=== PATIENT | male | born 1970 | race African-American/Black ===

== ENCOUNTER 2016-10-15 10:31 | Inpatient (IN) | payer OTHER ==
[2016-10-15 12:01] VITALS: BMI 28.0
[2016-10-15] MEDS ORDERED: P-EPHED 60MG/TRIPROLIDI 2.5MG TABLET PO PRN (13:42)
[2016-10-15] MEDS ORDERED: ACETAMINOPHEN 325 MG TABLET (FP) PO PRN (13:42)
[2016-10-15] MEDS ORDERED: guaiFENesin/D-METHORPHAN HB 10 ML UNIT-DOSE CUPS PO PRN (13:42)
[2016-10-15] MEDS ORDERED: diphenhydrAMINE HCL 50 MG CAPSULE PO PRN (13:42)
[2016-10-15] MEDS ORDERED: NICOTINE POLACRILEX 4 MG GUM BUC PRN (13:42)
[2016-10-15] MEDS ORDERED: hydrOXYzine PAMOATE 25 MG CAPSULE (FP) PO PRN (13:42)
[2016-10-15] MEDS ORDERED: MAGNESIUM CITRATE 300 ML BOTTLE PO PRN (13:42)
[2016-10-15] MEDS ORDERED: MENTHOL/PHENOL 1 EACH UD MM PRN (13:42)
[2016-10-15] MEDS ORDERED: MAG HYDROX/AL HYDROX/SIMETH 30 ML UNIT-DOSE CUP PO PRN (13:42)
[2016-10-15] MEDS ORDERED: MAGNESIUM HYDROX 2400MG/30ML ORAL SUSPENSION 30 ML CUP PO PRN (13:42)
[2016-10-15] MEDS ORDERED: LOPERAMIDE HCL 2 MG CAPSULE PO PRN (13:42)
--- NOTE | 2016-10-15 13:49 | HP ---
CIWA Score - CIWA Score Nausea/Vomitin Muscle Tremors: 2 Anxiety: 3 Agitation: 3 Paroxysmal Sweats: 3 Orientation: 0-Oriented Tacttile Disturbances: 2-Mild Itch/Numbness/Burn Auditory Disturbances: 0-None Visual Disturbances: 0-None Headache: 0-None Present CIWA-Ar Total Score: 15 Admission ROS BHS - HPI Chief Complaint: I need help to stop using alcohol , cocaine and Allergies/Adverse Reactions: Allergies Allergy/AdvReac Type Severity Reaction Status Date / Time beet Allergy Severe Hives Verified 10/15/16 13:44 No Known Drug Allergies Allergy Verified 10/15/16 13:44 History of Present Illness: 45 y/o m pt with a h/o chronic alcoholism, crack abuse seeking detox., Exam Limitations: No Limitations - Ebola screening Have you traveled outside of the country in the last 21 days: No Have you had contact with anyone from an Ebola affected area: No Have you been sick,other than usual withdrawal symptoms: No Do you have a fever: No - Review of Systems Constitutional: Changes in sleep, Unintentional Wgt. Loss (8lbs x 2 wks) EENT: reports: Blurred Vision, Other (wears galsses has them) Respiratory: reports: No Symptoms reported Cardiac: reports: No Symptoms Reported GI: reports: No Symptoms Reported : reports: No Symptoms Reported Musculoskeletal: reports: Joint Pain (rtr knee -rods , pins and a plate), Muscle Pain Integumentary: reports: Rash (on back -) Endocrine: reports: No Symptoms Reported Hematology: reports: No Symptoms Reported Psychiatric: reports: Agitated, Anxious, Depressed Other Systems: Reviewed and Negative Patient History - Patient Medical History Hx Anemia: No Hx Asthma: No Hx Chronic Obstructive Pulmonary Disease (COPD): No Hx Cancer: No Hx Cardiac Disorders: No Hx Congestive Heart Failure: No Hx Hypertension: Yes (Stopped taking medication) Hx Hypercholesterolemia: No Hx Pacemaker: No HX Cerebrovascular Accident: No (deneis, but gives hx of cluster headches. Rx. ibuprofen ) Hx Seizures: No Hx Dementia: No Hx Diabetes: No Hx Gastrointestinal Disorders: Yes (GERD) Hx Liver Disease: No Hx Genitourinary Disorders: No Hx Sexually Transmitted Disorders: No Hx Renal Disease (ESRD): No Hx Thyroid Disease: No Hx Human Immunodeficiency Virus (HIV): No (NEGATIVE) Hx Hepatitis C: No Hx Depression: Yes Hx Suicide Attempt: No Hx Bipolar Disorder: Yes (states that he was diag. with this condition also ) Hx Schizophrenia: No - Patient Surgical History Past Surgical History: Yes Hx Orthopedic Surgery: Yes (right knee with hardware) - PPD History Date: 08/23/15 - Reproductive History Patient is a Female of Child Bearing Age (11 -55 yrs old): No - Smoking Cessation Smoking history: Current every day smoker Have you smoked in the past 12 months: Yes Aproximately how many cigarettes per day: 10 Cigars Per Day: 0 Hx Chewing Tobacco Use: No Initiated information on smoking cessation: Yes 'Breaking Loose' booklet given: 10/15/16 - Substance & Tx. History Hx Alcohol Use: Yes Hx Substance Use: No Substance Use Type: Alcohol, Cocaine - Substances Abused Alcohol Route: Oral Frequency: Daily Amount used: beer(3-40 0z cans/[place] ice tea-1pint Age of first use: 11 Date of Last Use: 10/15/16 Crack Route: Smoking Frequency: Daily Amount used: $200 Age of first use: 21 Date of Last Use: 10/14/16 Family Disease History - Family Disease History Family History: Denies Admission Physical Exam BHS - Vital Signs Vital Signs: Vital Signs - 24 hr 10/15/16 11:58 Temperature 95.6 F L Pulse Rate 90 Respiratory 20 Rate Blood Pressure 126/69 45 y/o m pt aox3 , ambulating , cooperative with exam . 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 NML intact, Fully Oriented, Alert, Motor Strength 5/5, Normal Response Integumentary: Yes: Diaphoresis, Rash Lymphatic: Yes: Within Normal Limits - Addiitonal Findings: tinea vesicolor on back - Diagnostic (1) Cocaine dependence, continuous Current Visit: Yes Status: Chronic (2) Nicotine dependence Current Visit: Yes Status: Chronic Qualifiers: Nicotine product type: cigarettes Substance use status: uncomplicated Qualified Code(s): F17.210 - Nicotine dependence, cigarettes, uncomplicated (3) Bipolar affective disorder, mixed, moderate Current Visit: Yes Status: Chronic (4) Tinea versicolor Current Visit: Yes Status: Chronic (5) Alcohol dependence with uncomplicated withdrawal Current Visit: Yes Status: Chronic Cleared for Admission [facility] - Detox or Rehab [facility] Level of Care: Medically Managed Detox Regimen/Protocol: Librium [facility] Breath Alcohol Content Breath Alcohol Content: 0.024 Urine Drug Screen - Results Drug Screen Negative: No Urine Drug Screen Results: TAYLOR-Cocaine
[2016-10-15] MEDS: chlordiazePOXIDE HCL 25 MG CAPSULE PO PRN ×2 (15:10→20:15)
[2016-10-15] MEDS: chlordiazePOXIDE HCL 25 MG CAPSULE PO SCH ×2 (17:04→22:35)
--- NOTE | 2016-10-15 17:17 | CONSULT ---
[facility] Psychiatric Consult - Data Date of interview: 10/15/16 Admission source: [facility] Identifying data: Readmission to [facility] for this 45 y/o AA male seeking detox treatment on for alcohol and cocaine (crack) dependence.Patient is single,a father of one,domiciled,unemployed and supported on food stamps. Substance Abuse History: - Smoking Cessation. Smoking history: Current every day smoker. Have you smoked in the past 12 months: Yes. Aproximately how many cigarettes per day: 10. Cigars Per Day: 0. Hx Chewing Tobacco Use: No. Initiated information on smoking cessation: Yes. 'Breaking Loose' booklet given : 10/15/16. - Substance & Tx. History. Hx Alcohol Use: Yes. Hx Substance Use : No. Substance Use Type: Alcohol, Cocaine. - Substances Abused. Alcohol. Route: Oral. Frequency: Daily. Amount used: beer(3-40 0z cans/[place] ice tea-1pint. Age of first use: 11. Date of Last Use: 10/15/16. Crack. Route: Smoking. Frequency: Daily. Amount used: $200. Age of first use: 21. Date of Last Use: 10/14/16. Confirmed by patient. Medical History: GERD,hypertension,herniated disks,lower back pain,tinea versicolor and right knee with hardware. Psychiatric History: Patient reports a history of " a few " psychiatric hospitalizations.First seen by a psychiatrist,early on,at age [age] to address behavioral disturbances and hyperactivity.Mr Sharma is known to [facility] and [facility].Diagnosed with Bipolar Disorder.Maintained on a regimen of depakote 500 mg po bid + seroquel 50 mg po bid + risperdal 2 mg/day.He is assigned to [facility] clinic for follow up.Patient admits to a personal history of sub-optimal adherence for psychiatric aftercare.No reported history of suicide attempts. Physical/Sexual Abuse/Trauma History: Patient denies. Additional Comment: Urine Drug Screen Results: TAYLOR-Cocaine.Noted. Mental Status Exam - Mental Status Exam Alert and Oriented to: Time, Place, Person Cognitive Function: Good Patient Appearance: Well Groomed Mood: Hopeful, Euthymic Affect: Appropriate, Normal Range Patient Behavior: Appropriate, Cooperative Speech Pattern: Clear, Appropriate Voice Loudness: Normal Thought Process: Goal Oriented Thought Disorder: Not Present Hallucinations: Denies Suicidal Ideation: Denies Homicidal Ideation: Denies Insight/Judgement: Poor Sleep: Poorly, Difficulty falling asleep Appetite: Good Muscle strength/Tone: Normal Gait/Station: Normal Psychiatric Findings - Problem List ([place] 1, 2,3) (1) Alcohol dependence with uncomplicated withdrawal Current Visit: Yes Status: Acute (2) Cocaine dependence, uncomplicated Current Visit: Yes Status: Acute (3) Nicotine dependence Current Visit: Yes Status: Acute Qualifiers: Nicotine product type: cigarettes Substance use status: uncomplicated Qualified Code(s): F17.210 - Nicotine dependence, cigarettes, uncomplicated (4) Bipolar affective disorder, mixed, moderate Current Visit: Yes Status: Chronic (5) Substance induced mood disorder Current Visit: Yes Status: Acute (6) Tinea versicolor Current Visit: Yes Status: Chronic (7) Hypertension Current Visit: Yes Status: Chronic Qualifiers: Hypertension type: other secondary hypertension Qualified Code(s): I15.8 - Other secondary hypertension (8) GERD (gastroesophageal reflux disease) Current Visit: Yes Status: Suspected Qualifiers: Esophagitis presence: without esophagitis Qualified Code(s): K21.9 - Gastro-esophageal reflux disease without esophagitis - Initial Treatment Plan Initial Treatment Plan: Psychoeducation.Detoxification.Medications : depakote 500 mg po bid + seroquel 50 mg po bid + risperdal 1 mg po daily.Side effects/ benefits discussed with this patient.Made aware of the risks of abnormal involuntary movements,sexual dysfunction,galactorrhea,gynecomastia,neuroleptic malignant syndrome,dyskinesias,dystonias (risperdal),oversedation/falls, metabolic syndrome,weight gain,liver dysfunction (seroquel),blood dyscrasias, elevated liver enzymes/hepatic dysfunction (depakote).Patient reports good tolerability to these drugs/no prior history of adverse events.He expresses his agreement (verbally) to this careplan.Valproic acid level is requested.Will follow.Observation.
[2016-10-15 18:05] LABS: URINE APPEARANCE CLEAR; URINE BILIRUBIN NEGATIVE (NEGATIVE); URINE BLOOD NEGATIVE (NEGATIVE); URINE COLOR LTYELLOW; URINE GLUCOSE (UA) NEGATIVE (NEGATIVE); URINE KETONE NEGATIVE (NEGATIVE); URINE LEUK ESTERASE NEGATIVE (NEGATIVE); URINE NITRITE NEGATIVE (NEGATIVE); URINE PROTEIN NEGATIVE (NEGATIVE); URINE UROBILINOGEN NEGATIVE E.U./dl (0.2-1.0)
[2016-10-15 21:08] LABS: MCH 29.8 pg (25.7-33.7); MCHC 33.1 g/dl (32.0-35.9); MEAN CELL VOLUME 90.1 fl (80-96); MEAN PLT VOLUME 9.3 fl (7.5-11.1); PLATELET COUNT 221 K/MM3 (134-434); WHITE BLOOD COUNT 6.8 K/mm3 (4.0-10.0)
[2016-10-15 21:21] LABS: ALBUMIN 3.8 g/dl (3.4-5.0); CALCIUM 9.3 mg/dL (8.5-10.1)
[2016-10-15 21:26] LABS: BILIRUBIN,TOTAL 0.3 mg/dL (0.2-1.0); CREATININE 1.3 mg/dL (0.7-1.3); TOT PROT 6.8 g/dl (6.4-8.2)
[2016-10-15] MEDS: NAPROXEN 500 MG TABLET (FP) PO SCH (22:34)
[2016-10-15] MEDS: QUEtiapine FUMARATE 50 MG TABLET PO SCH (22:34)
[2016-10-15] MEDS: DIVALPROEX SODIUM 500 MG TABLET E.C. PO SCH (22:34)
[2016-10-15] MEDS: THIAMINE HCL 100 MG TABLET (FP) PO SCH (22:35)
[2016-10-15] MEDS: KETOCONOZOLE 2% TOPICAL CREAM 15 GM TUBE TP SCH (22:35)
[2016-10-15] MEDS: risperiDONE 1 MG TABLET (FP) PO SCH (22:37)
[2016-10-16] MEDS: chlordiazePOXIDE HCL 25 MG CAPSULE PO SCH ×4 (05:52→22:38)
--- NOTE | 2016-10-16 09:11 | PN ---
S CIWA - CIWA Score Nausea/Vomitin Muscle Tremors: 3 Anxiety: 3 Agitation: 3 Paroxysmal Sweats: 1-Minimal Palms Moist Orientation: 0-Oriented Tacttile Disturbances: 1-Very Mild Itch/Numbness Auditory Disturbances: 1-Very Mild Visual Disturbances: 1-Very Mild Sensitivity Headache: 2-Mild CIWA-Ar Total Score: 18 S Progress Note (SOAP) Subjective: ALERT,IRRITABLE,ANXIOUS,INTERRUPTED SLEEP,TREMOR Objective: 10/16/16 09:09 Vital Signs Temperature 96.4 F L 10/16/16 06:40 Pulse Rate 79 10/16/16 06:40 Respiratory Rate 18 10/16/16 06:40 Blood Pressure 120/75 10/16/16 06:40 O2 Sat by Pulse Oximetry (%) EKG NSR,NORMAL ECG Laboratory Last Values WBC 6.8 K/mm3 (4.0-10.0) D 10/15/16 13:00 RBC 4.77 M/mm3 (4.00-5.60) 10/15/16 13:00 Hgb 14.2 GM/dL (11.7-16.9) 10/15/16 13:00 Hct 43.0 % (35.4-49) 10/15/16 13:00 MCV 90.1 fl (80-96) 10/15/16 13:00 MCHC 33.1 g/dl (32.0-35.9) 10/15/16 13:00 RDW 14.0 % (11.9-15.9) 10/15/16 13:00 Plt Count 221 K/MM3 (134-434) 10/15/16 13:00 MPV 9.3 fl (7.5-11.1) 10/15/16 13:00 Sodium 143 mmol/L (136-145) 10/15/16 13:00 Potassium 3.9 mmol/L (3.5-5.1) 10/15/16 13:00 Chloride 106 mmol/L (98-107) 10/15/16 13:00 Carbon Dioxide 31 mmol/L (21-32) 10/15/16 13:00 Anion Gap 6 (8-16) L 10/15/16 13:00 BUN 14 mg/dL (7-18) 10/15/16 13:00 Creatinine 1.3 mg/dL (0.7-1.3) 10/15/16 13:00 Creat Clearance w eGFR 59.17 (>60) 10/15/16 13:00 Random Glucose 63 mg/dL (74-106) L D 10/15/16 13:00 Calcium 9.3 mg/dL (8.5-10.1) 10/15/16 13:00 Total Bilirubin 0.3 mg/dL (0.2-1.0) D 10/15/16 13:00 AST 13 U/L (15-37) L D 10/15/16 13:00 ALT 25 U/L (12-78) 10/15/16 13:00 Alkaline Phosphatase 67 U/L (45-117) 10/15/16 13:00 Total Protein 6.8 g/dl (6.4-8.2) 10/15/16 13:00 Albumin 3.8 g/dl (3.4-5.0) 10/15/16 13:00 Urine Color Ltyellow 10/15/16 15:00 Urine Appearance Clear 10/15/16 15:00 Urine pH 6.0 (5.0-8.0) 10/15/16 15:00 Ur Specific [place] 1.017 (1.001-1.035) 10/15/16 15:00 Urine Protein Negative (NEGATIVE) 10/15/16 15:00 Urine Glucose (UA) Negative (NEGATIVE) 10/15/16 15:00 Urine Ketones Negative (NEGATIVE) 10/15/16 15:00 Urine Blood Negative (NEGATIVE) 10/15/16 15:00 Urine Nitrite Negative (NEGATIVE) 10/15/16 15:00 Urine Bilirubin Negative (NEGATIVE) 10/15/16 15:00 Urine Urobilinogen Negative E.U./dl (0.2-1.0) 10/15/16 15:00 Ur Leukocyte Esterase Negative (NEGATIVE) 10/15/16 15:00 LABS PENDING Assessment: 10/16/16 09:10 WITHDRAWAL SYMPTOM Plan: CONTINUE DETOX
[2016-10-16] MEDS: KETOCONOZOLE 2% TOPICAL CREAM 15 GM TUBE TP SCH ×2 (10:35→22:38)
[2016-10-16] MEDS: PRENATAL VITAMINS W/ FOLIC ACID TABLET (FP) PO SCH (10:36)
[2016-10-16] MEDS: QUEtiapine FUMARATE 50 MG TABLET PO SCH ×2 (10:38→22:37)
[2016-10-16] MEDS: NAPROXEN 500 MG TABLET (FP) PO SCH ×2 (10:38→22:38)
[2016-10-16] MEDS: NICOTINE 21 MG/24 HOURS TOPICAL PATCH TD SCH (10:38)
[2016-10-16] MEDS: DIVALPROEX SODIUM 500 MG TABLET E.C. PO SCH ×2 (10:38→22:37)
[2016-10-16] MEDS ORDERED: INFLUENZA VACCINE 45 MCG/0.5 ML (MDV 16-17) IM ONE (12:00)
[2016-10-16] MEDS: risperiDONE 1 MG TABLET (FP) PO SCH (22:37)
[2016-10-16] MEDS: THIAMINE HCL 100 MG TABLET (FP) PO SCH (22:37)
[2016-10-17] MEDS: chlordiazePOXIDE HCL 25 MG CAPSULE PO SCH ×2 (05:49→10:57)
--- NOTE | 2016-10-17 09:29 | PN ---
S CIWA - CIWA Score Nausea/Vomitin Muscle Tremors: 3 Anxiety: 3 Agitation: 2 Paroxysmal Sweats: 1-Minimal Palms Moist Orientation: 0-Oriented Tacttile Disturbances: 1-Very Mild Itch/Numbness Auditory Disturbances: 1-Very Mild Visual Disturbances: 1-Very Mild Sensitivity Headache: 2-Mild CIWA-Ar Total Score: 17 BHS Progress Note (SOAP) Subjective: ALERT,IRRITABLE,ANXIOUS,INTERRUPTED SLEEP,TREMOR Objective: 10/17/16 09:28 Vital Signs Temperature 95.7 F L 10/17/16 06:47 Pulse Rate 87 10/17/16 06:47 Respiratory Rate 16 10/17/16 06:47 Blood Pressure 104/63 10/17/16 06:47 O2 Sat by Pulse Oximetry (%) Laboratory Last Values WBC 6.8 K/mm3 (4.0-10.0) D 10/15/16 13:00 RBC 4.77 M/mm3 (4.00-5.60) 10/15/16 13:00 Hgb 14.2 GM/dL (11.7-16.9) 10/15/16 13:00 Hct 43.0 % (35.4-49) 10/15/16 13:00 MCV 90.1 fl (80-96) 10/15/16 13:00 MCHC 33.1 g/dl (32.0-35.9) 10/15/16 13:00 RDW 14.0 % (11.9-15.9) 10/15/16 13:00 Plt Count 221 K/MM3 (134-434) 10/15/16 13:00 MPV 9.3 fl (7.5-11.1) 10/15/16 13:00 Sodium 143 mmol/L (136-145) 10/15/16 13:00 Potassium 3.9 mmol/L (3.5-5.1) 10/15/16 13:00 Chloride 106 mmol/L (98-107) 10/15/16 13:00 Carbon Dioxide 31 mmol/L (21-32) 10/15/16 13:00 Anion Gap 6 (8-16) L 10/15/16 13:00 BUN 14 mg/dL (7-18) 10/15/16 13:00 Creatinine 1.3 mg/dL (0.7-1.3) 10/15/16 13:00 Creat Clearance w eGFR 59.17 (>60) 10/15/16 13:00 Random Glucose 63 mg/dL (74-106) L D 10/15/16 13:00 Calcium 9.3 mg/dL (8.5-10.1) 10/15/16 13:00 Total Bilirubin 0.3 mg/dL (0.2-1.0) D 10/15/16 13:00 AST 13 U/L (15-37) L D 10/15/16 13:00 ALT 25 U/L (12-78) 10/15/16 13:00 Alkaline Phosphatase 67 U/L (45-117) 10/15/16 13:00 Total Protein 6.8 g/dl (6.4-8.2) 10/15/16 13:00 Albumin 3.8 g/dl (3.4-5.0) 10/15/16 13:00 Urine Color Ltyellow 10/15/16 15:00 Urine Appearance Clear 10/15/16 15:00 Urine pH 6.0 (5.0-8.0) 10/15/16 15:00 Ur Specific [place] 1.017 (1.001-1.035) 10/15/16 15:00 Urine Protein Negative (NEGATIVE) 10/15/16 15:00 Urine Glucose (UA) Negative (NEGATIVE) 10/15/16 15:00 Urine Ketones Negative (NEGATIVE) 10/15/16 15:00 Urine Blood Negative (NEGATIVE) 10/15/16 15:00 Urine Nitrite Negative (NEGATIVE) 10/15/16 15:00 Urine Bilirubin Negative (NEGATIVE) 10/15/16 15:00 Urine Urobilinogen Negative E.U./dl (0.2-1.0) 10/15/16 15:00 Ur Leukocyte Esterase Negative (NEGATIVE) 10/15/16 15:00 Valproic Acid 7.878 ug/ml (50-100) L 10/16/16 06:00 RPR Titer Nonreactive (NONREACTIVE) 10/15/16 13:00 Assessment: 10/17/16 09:29 WITHDRAWAL SYMPTOM Plan: CONTINUE DETOX
[2016-10-17] MEDS: DIVALPROEX SODIUM 500 MG TABLET E.C. PO SCH ×2 (10:56→22:43)
[2016-10-17] MEDS: QUEtiapine FUMARATE 50 MG TABLET PO SCH ×2 (10:57→22:44)
[2016-10-17] MEDS: NICOTINE 21 MG/24 HOURS TOPICAL PATCH TD SCH (10:57)
[2016-10-17] MEDS: PRENATAL VITAMINS W/ FOLIC ACID TABLET (FP) PO SCH (10:57)
[2016-10-17] MEDS: NAPROXEN 500 MG TABLET (FP) PO SCH ×2 (10:57→22:43)
[2016-10-17] MEDS: KETOCONOZOLE 2% TOPICAL CREAM 15 GM TUBE TP SCH ×2 (10:57→22:44)
--- NOTE | 2016-10-17 13:24 | EKG ---
Test Reason : Blood Pressure : / mmHG Vent. Rate : 072 BPM Atrial Rate : 072 BPM P-R Int : 136 ms QRS Dur : 078 ms QT Int : 380 ms P-R-T Axes : 071 076 041 degrees QTc Int : 416 ms NORMAL SINUS RHYTHM NORMAL ECG NO PREVIOUS ECGS AVAILABLE Confirmed by JOSÉ CRUZ, DANICA ([id number]) on 10/17/2016 1:24:15 PM Referred By: Joaquin Ortiz Confirmed By:DANICA KUMAR MD
[2016-10-17] MEDS: chlordiazePOXIDE 5 MG CAPSULE PO SCH ×2 (17:52→22:43)
--- NOTE | 2016-10-17 20:01 | PN ---
[facility] Progress Note Note: Psychiatry Attending's note : Approached by patient. Complaint : daytime sedation. Requests lower dose of seroquel. Plan : Seroquel 50 mg/day is discontinued. Seroquel 50 mg po at bedtime. Patient agrees with this careplan.
[2016-10-17] MEDS: THIAMINE HCL 100 MG TABLET (FP) PO SCH (22:43)
[2016-10-18] MEDS: chlordiazePOXIDE 5 MG CAPSULE PO SCH ×2 (05:16→10:47)
--- NOTE | 2016-10-18 10:41 | PN ---
S Progress Note (SOAP) Subjective: ALERT,IRRITABLE,INTERRUPTED SLEEP Objective: 10/18/16 10:40 Vital Signs Temperature 96 F L 10/18/16 09:54 Pulse Rate 83 10/18/16 09:54 Respiratory Rate 20 10/18/16 09:54 Blood Pressure 104/71 10/18/16 09:54 O2 Sat by Pulse Oximetry (%) Assessment: 10/18/16 10:40 WITHDRAWAL SYMPTOM Plan: CONTINUE DETOX,DISCHARGE IN AM
[2016-10-18] MEDS: PRENATAL VITAMINS W/ FOLIC ACID TABLET (FP) PO SCH (10:47)
[2016-10-18] MEDS: DIVALPROEX SODIUM 500 MG TABLET E.C. PO SCH ×2 (10:47→22:26)
[2016-10-18] MEDS: NICOTINE 21 MG/24 HOURS TOPICAL PATCH TD SCH (10:47)
[2016-10-18] MEDS: NAPROXEN 500 MG TABLET (FP) PO SCH ×2 (10:47→22:26)
[2016-10-18] MEDS: KETOCONOZOLE 2% TOPICAL CREAM 15 GM TUBE TP SCH ×2 (10:49→22:27)
[2016-10-18] MEDS: chlordiazePOXIDE HCL 10 MG CAPSULE PO SCH ×2 (17:44→22:26)
[2016-10-18] MEDS: THIAMINE HCL 100 MG TABLET (FP) PO SCH (22:26)
[2016-10-18] MEDS: QUEtiapine FUMARATE 50 MG TABLET PO SCH (22:28)
[2016-10-19] MEDS: chlordiazePOXIDE HCL 10 MG CAPSULE PO SCH ×2 (06:09→10:53)
[2016-10-19] MEDS: DIVALPROEX SODIUM 500 MG TABLET E.C. PO SCH (09:49)
[2016-10-19] MEDS: PRENATAL VITAMINS W/ FOLIC ACID TABLET (FP) PO SCH (09:49)
[2016-10-19] MEDS: NAPROXEN 500 MG TABLET (FP) PO SCH (09:49)
[2016-10-19] MEDS: KETOCONOZOLE 2% TOPICAL CREAM 15 GM TUBE TP SCH (09:50)
[2016-10-19] MEDS: NICOTINE 21 MG/24 HOURS TOPICAL PATCH TD SCH (09:50)
[2016-10-19 10:33] VITALS: BP 97/66; PULSE 89; TEMP 96.4
--- NOTE | 2016-10-19 15:35 | DS ---
[facility] Detox Discharge Summary Admission Date: 10/15/16 Discharge Date: 10/19/16 - History Present History: Alcohol Dependence, Cocaine Dependence Additional Comments: ADVISED PATIENT TO FOLLOW-UP WITH [facility] / REHAB MEDICAL PROVIDER AFTER DISCHARGE FROM DETOX FOR GENERAL MEDICAL ASSESSMENT. Pertinent Past History: HTN, GERD, Bi-Polar disorder. - Physical Exam Results Vital Signs: Vital Signs Temperature 96.4 F L 10/19/16 10:32 Pulse Rate 89 10/19/16 10:32 Respiratory Rate 18 10/19/16 10:32 Blood Pressure 97/66 10/19/16 10:32 O2 Sat by Pulse Oximetry (%) Pertinent Admission Physical Exam Findings: WITHDRAWAL SYMPTOMS. Laboratory Last Values WBC 6.8 K/mm3 (4.0-10.0) D 10/15/16 13:00 RBC 4.77 M/mm3 (4.00-5.60) 10/15/16 13:00 Hgb 14.2 GM/dL (11.7-16.9) 10/15/16 13:00 Hct 43.0 % (35.4-49) 10/15/16 13:00 MCV 90.1 fl (80-96) 10/15/16 13:00 MCHC 33.1 g/dl (32.0-35.9) 10/15/16 13:00 RDW 14.0 % (11.9-15.9) 10/15/16 13:00 Plt Count 221 K/MM3 (134-434) 10/15/16 13:00 MPV 9.3 fl (7.5-11.1) 10/15/16 13:00 Sodium 143 mmol/L (136-145) 10/15/16 13:00 Potassium 3.9 mmol/L (3.5-5.1) 10/15/16 13:00 Chloride 106 mmol/L (98-107) 10/15/16 13:00 Carbon Dioxide 31 mmol/L (21-32) 10/15/16 13:00 Anion Gap 6 (8-16) L 10/15/16 13:00 BUN 14 mg/dL (7-18) 10/15/16 13:00 Creatinine 1.3 mg/dL (0.7-1.3) 10/15/16 13:00 Creat Clearance w eGFR 59.17 (>60) 10/15/16 13:00 Random Glucose 63 mg/dL (74-106) L D 10/15/16 13:00 Calcium 9.3 mg/dL (8.5-10.1) 10/15/16 13:00 Total Bilirubin 0.3 mg/dL (0.2-1.0) D 10/15/16 13:00 AST 13 U/L (15-37) L D 10/15/16 13:00 ALT 25 U/L (12-78) 10/15/16 13:00 Alkaline Phosphatase 67 U/L (45-117) 10/15/16 13:00 Total Protein 6.8 g/dl (6.4-8.2) 10/15/16 13:00 Albumin 3.8 g/dl (3.4-5.0) 10/15/16 13:00 Urine Color Ltyellow 10/15/16 15:00 Urine Appearance Clear 10/15/16 15:00 Urine pH 6.0 (5.0-8.0) 10/15/16 15:00 Ur Specific [place] 1.017 (1.001-1.035) 10/15/16 15:00 Urine Protein Negative (NEGATIVE) 10/15/16 15:00 Urine Glucose (UA) Negative (NEGATIVE) 10/15/16 15:00 Urine Ketones Negative (NEGATIVE) 10/15/16 15:00 Urine Blood Negative (NEGATIVE) 10/15/16 15:00 Urine Nitrite Negative (NEGATIVE) 10/15/16 15:00 Urine Bilirubin Negative (NEGATIVE) 10/15/16 15:00 Urine Urobilinogen Negative E.U./dl (0.2-1.0) 10/15/16 15:00 Ur Leukocyte Esterase Negative (NEGATIVE) 10/15/16 15:00 Valproic Acid 7.878 ug/ml (50-100) L 10/16/16 06:00 RPR Titer Nonreactive (NONREACTIVE) 10/15/16 13:00 Hepatitis C Antibody 0.4 s/co ratio (0.0-0.9) 10/15/16 13:45 LABS NOTED. - Treatment Hospital Course: Detox Protocol Followed, Detoxed Safely, Responded well, Discharged Condition Good, Rehab Referral Accepted Patient has Accepted a Rehab Referral to: YES - [facility]. - Medication Discharge Medications: Ambulatory Orders Esomeprazole Magnesium 40 mg PO DAILY 08/16/15 Quetiapine Fumarate [Seroquel -] 50 mg PO HS #30 08/17/15 Divalproex [Depakote -] 500 mg PO BID #60 tablet.ec 09/08/15 Divalproex [Depakote -] 500 mg PO BID #30 tablet.ec 10/15/16 Naproxen [Naprosyn -] 500 mg PO DAILY 10/15/16 Quetiapine Fumarate [Seroquel] 100 mg PO HS #30 tablet 10/15/16 - Diagnosis (1) Alcohol dependence with uncomplicated withdrawal Status: Acute (2) Alcohol dependence, continuous Status: Chronic (3) Cocaine dependence, uncomplicated Status: Acute (4) Nicotine dependence Status: Chronic Qualifiers: Nicotine product type: cigarettes Substance use status: uncomplicated Qualified Code(s): F17.210 - Nicotine dependence, cigarettes, uncomplicated (5) Substance induced mood disorder Status: Acute (6) Bipolar affective disorder, mixed, moderate Status: Chronic (7) Cocaine dependence, continuous Status: Chronic (8) Hypertension Status: Chronic Qualifiers: Hypertension type: other secondary hypertension Qualified Code(s): I15.8 - Other secondary hypertension (9) Tinea versicolor Status: Chronic (10) GERD (gastroesophageal reflux disease) Status: Suspected Qualifiers: Esophagitis presence: without esophagitis Qualified Code(s): K21.9 - Gastro-esophageal reflux disease without esophagitis - AMA Did Patient Leave Against Medical Advice: No
== END 2016-10-19 09:55 | disposition home or self-care (01) | DRG 774 ==
LOC: YASAS 10:31 → Y3N 14:40
PROVIDERS: ADMIT Internal Medicine Addiction Medicine; ATTEND Internal Medicine
PROC: HZ2ZZZZ Detoxification Services for Substance Abuse Treatment (ICD-10-PCS; principal; 2016-10-19)
DX: F10.230 Alcohol dependence with withdrawal, uncomplicated (principal); F14.20 Cocaine dependence, uncomplicated; F17.210 Nicotine dependence, cigarettes, uncomplicated; F19.24 Other psychoactive substance dependence with psychoactive substance-induced mood disorder; F31.62 Bipolar disorder, current episode mixed, moderate; I10 Essential (primary) hypertension; K21.9 Gastro-esophageal reflux disease without esophagitis; B36.0 Pityriasis versicolor
CPT/HCPCS: 36415; 80053; 80164; 81003; 85027; 86593; 93005; 93010

== ENCOUNTER 2017-10-31 10:41 | Inpatient (IN) | payer OTHER ==
[2017-10-31 11:29] VITALS: BMI 25.8
--- NOTE | 2017-10-31 13:24 | HP ---
CIWA Score - CIWA Score Nausea/Vomitin-No Nausea/No Vomiting Muscle Tremors: 4-Moderate,w/Arms Extend Anxiety: 4-Mod. Anxious/Guarded Agitation: 4-Moderately Restless Paroxysmal Sweats: 1-Minimal Palms Moist Orientation: 0-Oriented Tacttile Disturbances: 3-Moderate Itch/Numb/Burn Auditory Disturbances: 0-None Visual Disturbances: 0-None Headache: 0-None Present CIWA-Ar Total Score: 16 Admission ROS S - HPI Chief Complaint: WITHDRAWAL SX FROM ALCOHOL Allergies/Adverse Reactions: Allergies Allergy/AdvReac Type Severity Reaction Status Date / Time beet Allergy Severe Hives Verified 10/31/17 11:59 No Known Drug Allergies Allergy Verified 10/31/17 11:59 History of Present Illness: 47 Y/O AA/MALE WITH A HX OF ALCOHOL,COCAINE AND "JEANNE" DEPENDENCE SEEKING DETOX TX. REPORTS "EIGHT MONTHS CLEAN IN A RESIDENTIAL PROGRAM BUT RELAPSED". Exam Limitations: No Limitations - Ebola screening Have you traveled outside of the country in the last 21 days: No Have you had contact with anyone from an Ebola affected area: No Have you been sick,other than usual withdrawal symptoms: No - Review of Systems Constitutional: Chills, Loss of Appetite, Night Sweats, Changes in sleep ( "NIGHTMARES--ON SEROQUEL AND RESPERIDOL"), Unintentional Wgt. Loss EENT: reports: Blurred Vision (WEARS GLASSES), Tearing, Nose Congestion, Dental Problems (MISSING TEETH/CHIPPED/PAINFUL TOOTH) Respiratory: reports: No Symptoms reported Cardiac: reports: Chest Pain (HX HEART MURMUR. REPORTS FEELS CHEST PAIN WHEN HE COMES OFF DRUGS), Lightheadedness GI: reports: Constipated, Poor Appetite, Poor Fluid Intake, Indigestion (HX GERD WITH MEDS IN THE PAST -RESOLVED, NO CURRENT MEDS.) : reports: No Symptoms Reported Musculoskeletal: reports: Back Pain, Joint Pain, Muscle Pain Integumentary: reports: Rash (FACIAL BEARDED AREAS--STATES HIS DOCTOR PRESCRIBED HIM HYDROCORTISONE OINTMENT.) Neuro: reports: Headache (HX MIGRAINE HEADACHE--REPORTS VEIN RUPTURE IN HAED A CHILD), Tremors, Unsteady Gait, Dizziness Endocrine: reports: No Symptoms Reported Hematology: reports: Anemia (PAST HX) Psychiatric: reports: Orientated x3, Anxious Other Systems: Reviewed and Negative Patient History - Patient Medical History Hx Anemia: Yes (REPORTS HE TAKES IRON SUPPLEMENTS AND VIT B12 TABLETS) Hx Asthma: No Hx Chronic Obstructive Pulmonary Disease (COPD): No Hx Cancer: No Hx Cardiac Disorders: No Hx Congestive Heart Failure: No Hx Hypertension: No Hx Hypercholesterolemia: No Hx Pacemaker: No HX Cerebrovascular Accident: No (deneis, but gives hx of cluster headches. Rx. ibuprofen ) Hx Seizures: No Hx Dementia: No Hx Diabetes: No Hx Gastrointestinal Disorders: Yes (GERD IN THE PAST BUT NO CURRENT MED) Hx Liver Disease: No Hx Genitourinary Disorders: No Hx Sexually Transmitted Disorders: Yes (gonorrhea and syphilis) Hx Renal Disease (ESRD): No Hx Thyroid Disease: No Hx Human Immunodeficiency Virus (HIV): No (NEGATIVE HX) Hx Hepatitis C: No Hx Depression: Yes Hx Suicide Attempt: No (DENIES S/I) Hx Bipolar Disorder: Yes (states that he was diag. with this condition also ) Hx Schizophrenia: No - Patient Surgical History Past Surgical History: Yes Hx Orthopedic Surgery: Yes (fx, right knee in 2009) Anesthesia Reaction: No - PPD History Previous Implant?: Yes Documented Results: Negative w/proof Implanted On Prior [facility] Admission?: Yes Date: 10/17/16 Results: 0 mm PPD to be Administered?: Yes - Reproductive History Patient is a Female of Child Bearing Age (11 -55 yrs old): No (MALE) - Smoking Cessation Smoking history: Current every day smoker Have you smoked in the past 12 months: Yes Aproximately how many cigarettes per day: 20 Cigars Per Day: 0 Hx Chewing Tobacco Use: No Initiated information on smoking cessation: Yes 'Breaking Loose' booklet given: 10/31/17 - Substance & Tx. History Hx Alcohol Use: Yes (GIN/BEER) Hx Substance Use: Yes (CRACK/JEANNE) Substance Use Type: Alcohol, Cocaine Hx Substance Use Treatment: Yes (LAST TX AT [facility]) - Substances Abused Crack Route: Smoking Frequency: Daily Amount used: $300-400 Age of first use: 17 Date of Last Use: 10/29/17 Alcohol-gin/beer Route: Oral Frequency: Daily Amount used: 2-3 pts./2 (40 oz.) Age of first use: 11 Date of Last Use: 10/29/17 Jeanne Route: Oral Frequency: 1-2 times per week Amount used: $40 Age of first use: 43 Date of Last Use: 10/29/17 Family Disease History - Family Disease History Family History: Denies Admission Physical Exam [facility] - Vital Signs Vital Signs: Vital Signs - 24 hr 10/31/17 11:23 Temperature 97.2 F L Pulse Rate 89 Respiratory 18 Rate Blood Pressure 125/75 - Physical General Appearance: Yes: Moderate Distress, Anxious HEENTM: Yes: EOMI, Normocephalic, BRAD, Pharynx Normal Respiratory: Yes: Chest Non-Tender, Lungs Clear, Normal Breath Sounds, No Respiratory Distress Neck: Yes: Supple, Trachea in good position Breast: Yes: Breast Exam Deferred Cardiology: Yes: Regular Rhythm, Regular Rate, S1, S2 Abdominal: Yes: Normal Bowel Sounds, Non Tender, Flat Genitourinary: Yes: Other (N/C) Back: Yes: Within Normal Limits Musculoskeletal: Yes: full range of Motion, Gait Steady Extremities: Yes: Normal Range of Motion, Non-Tender 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 NML intact, Fully Oriented, Alert, Motor Strength 5/5 Integumentary: Yes: Dry, Warm Lymphatic: Yes: Within Normal Limits - Diagnostic (1) Alcohol dependence with uncomplicated withdrawal Current Visit: Yes Status: Acute (2) Cocaine dependence, uncomplicated Current Visit: Yes Status: Acute (3) Nicotine dependence Current Visit: Yes Status: Acute Qualifiers: Nicotine product type: cigarettes Substance use status: in withdrawal Qualified Code(s): F17.213 - Nicotine dependence, cigarettes, with withdrawal (4) Tinea versicolor Current Visit: Yes Status: Chronic (5) GERD (gastroesophageal reflux disease) Current Visit: No Status: Suspected Qualifiers: Esophagitis presence: without esophagitis Qualified Code(s): K21.9 - Gastro -esophageal reflux disease without esophagitis (6) History of anemia Current Visit: Yes Status: Suspected Cleared for Admission [facility] - Detox or Rehab [facility] Level of Care: Medically Managed Detox Regimen/Protocol: Librium [facility] Breath Alcohol Content Breath Alcohol Content: 0 Urine Drug Screen - Results Drug Screen Negative: No Urine Drug Screen Results: TAYLOR-Cocaine
[2017-10-31] MEDS ORDERED: guaiFENesin/D-METHORPHAN HB 10 ML UNIT-DOSE CUPS PO PRN (13:57)
[2017-10-31] MEDS ORDERED: MAGNESIUM CITRATE 300 ML BOTTLE PO PRN (13:57)
[2017-10-31] MEDS ORDERED: MAGNESIUM HYDROX 2400MG/30ML ORAL SUSPENSION 30 ML CUP PO PRN (13:57)
[2017-10-31] MEDS ORDERED: LOPERAMIDE HCL 2 MG CAPSULE PO PRN (13:57)
[2017-10-31] MEDS ORDERED: MENTHOL/PHENOL 1 EACH UD MM PRN (13:57)
[2017-10-31] MEDS ORDERED: NICOTINE POLACRILEX 4 MG GUM BUC PRN (13:57)
[2017-10-31] MEDS ORDERED: MAG HYDROX/AL HYDROX/SIMETH 30 ML UNIT-DOSE CUP PO PRN (13:57)
[2017-10-31] MEDS ORDERED: chlordiazePOXIDE HCL 25 MG CAPSULE PO PRN (13:57)
[2017-10-31] MEDS ORDERED: P-EPHED 60MG/TRIPROLIDI 2.5MG TABLET PO PRN (13:57)
[2017-10-31] MEDS ORDERED: chlordiazePOXIDE HCL 25 MG CAPSULE PO ONE (15:00)
[2017-10-31] MEDS: ACETAMINOPHEN 325 MG TABLET (FP) PO PRN (15:41)
[2017-10-31] MEDS: NICOTINE 21 MG/24 HOURS TOPICAL PATCH TD SCH (15:45)
--- NOTE | 2017-10-31 16:09 | CONSULT ---
[facility] Psychiatric Consult - Data Date of interview: 10/31/17 Admission source: [facility] Identifying data: This is 47 years ols AA male, divorsed, father of one, living alone, on PA, with history of Bipolar Disorder, history of psychiatric hospitalizations, is here for detos due to abusing: Alcohol, Crack and Amphetamins. Substance Abuse History: - Smoking Cessation. Smoking history: Current every day smoker. Have you smoked in the past 12 months: Yes. Aproximately how many cigarettes per day: 20. Cigars Per Day: 0. Hx Chewing Tobacco Use: No. Initiated information on smoking cessation: Yes. 'Breaking Loose' booklet given : 10/31/17. - Substance & Tx. History. Hx Alcohol Use: Yes (GIN/BEER). Hx Substance Use: Yes (CRACK/JEANNE). Substance Use Type: Alcohol, Cocaine. Hx Substance Use Treatment: Yes (LAST TX AT [facility]). - Substances Abused. Crack. Route: Smoking. Frequency: Daily. Amount used: $300-400. Age of first use: 17. Date of Last Use: 10/29/17. Alcohol-gin/beer. Route: Oral. Frequency: Daily. Amount used: 2-3 pts./2 (40 oz.). Age of first use: 11. Date of Last Use: 10/29/17. Jeanne. Route: Oral. Frequency: 1-2 times per week. Amount used: $40. Age of first use: 43. Date of Last Use: 10/29/17 Medical History: GERD, Aneemia history Psychiatric History: Patient reports history of Bipolar disordedr, reports most recent psychiatgric admission on 2 months ago at [facility], reports taking prior to admission: Riosperdal 2mg poqd. 3mg po qhs. Seroquel 100mg pop qhs. Depakote 500mg po bid Physical/Sexual Abuse/Trauma History: Denies Additional Comment: Riosperdal 2mg poqd. 3mg po qhs. Seroquel 100mg pop qhs. Depakote 500mg po bid Mental Status Exam - Mental Status Exam Alert and Oriented to: Person Cognitive Function: Fair Patient Appearance: Unkempt Mood: Anxious Affect: Labile Patient Behavior: Cooperative Speech Pattern: Appropriate Voice Loudness: Normal Thought Process: Goal Oriented Thought Disorder: Being Controlled Hallucinations: Denies Suicidal Ideation: Denies Homicidal Ideation: Denies Insight/Judgement: Fair Sleep: Difficulty falling asleep Muscle strength/Tone: Normal Gait/Station: Normal Additional Comments: Riosperdal 2mg poqd. 3mg po qhs. Seroquel 100mg pop qhs. Depakote 500mg po bid Psychiatric Findings - Problem List ([place] 1, 2,3) (1) Alcohol dependence with uncomplicated withdrawal Current Visit: Yes Status: Acute (2) Cocaine dependence, uncomplicated Current Visit: Yes Status: Acute (3) Nicotine dependence Current Visit: Yes Status: Acute Qualifiers: Nicotine product type: cigarettes Substance use status: in withdrawal Qualified Code(s): F17.213 - Nicotine dependence, cigarettes, with withdrawal (4) Substance induced mood disorder Current Visit: No Status: Acute (5) Alcohol dependence, continuous Current Visit: No Status: Chronic (6) Bipolar affective disorder, mixed, moderate Current Visit: No Status: Chronic (7) Cocaine dependence, continuous Current Visit: No Status: Chronic - Initial Treatment Plan Initial Treatment Plan: Riosperdal 2mg poqd. 3mg po qhs. Seroquel 100mg pop qhs. Depakote 500mg po bid. Depakote bl;ood level
[2017-10-31] MEDS: chlordiazePOXIDE HCL 25 MG CAPSULE PO SCH ×2 (17:13→22:14)
[2017-10-31 17:19] LABS: HEMATOCRIT 40.1 % (35.4-49); HEMOGLOBIN 13.9 GM/dL (11.7-16.9); MCH 30.7 pg (25.7-33.7); MCHC 34.6 g/dl (32.0-35.9); MEAN CELL VOLUME 88.9 fl (80-96); MEAN PLT VOLUME 9.8 fl (7.5-11.1); PLATELET COUNT 207 K/MM3 (134-434); RBC 4.51 M/mm3 (4.00-5.60); RDW 13.3 % (11.9-15.9); WHITE BLOOD COUNT 9.4 K/mm3 (4.0-10.0)
[2017-10-31 18:23] LABS: ALBUMIN 3.9 g/dl (3.4-5.0); ANION GAP 9 (8-16); BILIRUBIN,TOTAL 0.2 mg/dL (0.2-1.0); BLOOD UREA NITROGEN 15 mg/dL (7-18); CALCIUM 9.1 mg/dL (8.5-10.1); CHLORIDE 105 mmol/L (98-107); CO2 29 mmol/L (21-32); CREATININE 1.2 mg/dL (0.7-1.3); GLUCOSE,RANDOM 105 mg/dL (74-106); POTASSIUM 4.1 mmol/L (3.5-5.1); SGOT/AST 14 U/L (15-37); SGPT/ALT 27 U/L (12-78); SODIUM 143 mmol/L (136-145); TOT PROT 7.2 g/dl (6.4-8.2)
[2017-10-31 18:24] LABS: ALK PHOS 90 U/L (45-117)
[2017-10-31] MEDS ORDERED: MELATONIN 5 MG TABLETS PO PRN (22:00)
[2017-10-31] MEDS ORDERED: HYDROCORTISONE 1% TOPICAL OINT 30 GM TUBE TP SCH (22:00)
[2017-10-31] MEDS: THIAMINE HCL 100 MG TABLET (FP) PO SCH (22:13)
[2017-10-31] MEDS: HYDROCORTISONE 1% TOPICAL OINT 30 GM TUBE TP SCH (22:13)
[2017-10-31] MEDS: DIVALPROEX SODIUM 500 MG TABLET E.C. PO SCH (22:14)
[2017-10-31] MEDS: risperiDONE 3 MG TABLET PO SCH (22:14)
[2017-10-31] MEDS: QUEtiapine FUMARATE 100 MG TABLET (FP) PO SCH (22:14)
[2017-11-01 01:33] LABS: URINE APPEARANCE CLEAR; URINE BILIRUBIN NEGATIVE (<2.0 mg/dL); URINE BLOOD NEGATIVE (NEGATIVE); URINE COLOR YELLOW; URINE GLUCOSE (UA) NEGATIVE (NEGATIVE); URINE KETONE NEGATIVE (NEGATIVE); URINE LEUK ESTERASE NEGATIVE (NEGATIVE); URINE NITRITE NEGATIVE (NEGATIVE); URINE PROTEIN NEGATIVE (NEGATIVE); URINE UROBILINOGEN NEGATIVE mg/dL (0.2-1.0)
[2017-11-01] MEDS: chlordiazePOXIDE HCL 25 MG CAPSULE PO SCH ×4 (06:18→22:13)
[2017-11-01] MEDS: risperiDONE 2 MG TABLET PO SCH (06:18)
--- NOTE | 2017-11-01 10:10 | EKG ---
Test Reason : Blood Pressure : / mmHG Vent. Rate : 078 BPM Atrial Rate : 078 BPM P-R Int : 132 ms QRS Dur : 084 ms QT Int : 376 ms P-R-T Axes : 077 081 031 degrees QTc Int : 428 ms NORMAL SINUS RHYTHM NORMAL ECG WHEN COMPARED WITH ECG OF 15-OCT-2016 14:54, NO SIGNIFICANT CHANGE WAS FOUND Confirmed by BENNETT SILVA MD ([id number]) on 11/01/2017 10:09:30 AM Referred By: Confirmed By:BENNETT SILVA MD
[2017-11-01] MEDS: HYDROCORTISONE 1% TOPICAL OINT 30 GM TUBE TP SCH ×2 (10:26→22:14)
[2017-11-01] MEDS: DIVALPROEX SODIUM 500 MG TABLET E.C. PO SCH ×2 (10:26→22:13)
[2017-11-01] MEDS: PRENATAL VITAMINS W/ FOLIC ACID TABLET (FP) PO SCH (10:26)
[2017-11-01] MEDS: NICOTINE 21 MG/24 HOURS TOPICAL PATCH TD SCH (10:27)
--- NOTE | 2017-11-01 11:45 | PN ---
[facility] CIWA - CIWA Score Nausea/Vomitin-No Nausea/No Vomiting Muscle Tremors: 3 Anxiety: 4-Mod. Anxious/Guarded Agitation: 0-Normal Activity Paroxysmal Sweats: 3 Orientation: 2-Disoriented Date<2 days Tacttile Disturbances: 2-Mild Itch/Numbness/Burn Auditory Disturbances: 0-None Visual Disturbances: 3-Moderate Sensitivity Headache: 0-None Present CIWA-Ar Total Score: 17 S Progress Note (SOAP) Subjective: Constipation, Sweating, Fatigue, Interrupted Sleep, Tremors. Objective: PATIENT A & O X 2 (UNCERTAIN ABOUT CURRENT DAY/ DATE). PATIENT OBSERVED AMBULATING ON UNIT. NO ACUTE DISTRESS. 11/01/17 11:43 Vital Signs Temperature 96.9 F L 11/01/17 09:09 Pulse Rate 91 H 11/01/17 09:09 Respiratory Rate 20 11/01/17 09:09 Blood Pressure 95/63 11/01/17 09:09 O2 Sat by Pulse Oximetry (%) Laboratory Tests 10/31/17 10/31/17 10/31/17 12:00 14:00 14:00 WBC 9.4 D RBC 4.51 Hgb 13.9 Hct 40.1 MCV 88.9 MCH 30.7 MCHC 34.6 RDW 13.3 Plt Count 207 MPV 9.8 Sodium 143 Potassium 4.1 Chloride 105 Carbon Dioxide 29 Anion Gap 9 BUN 15 Creatinine 1.2 Creat Clearance w eGFR > 60 Random Glucose 105 D Calcium 9.1 Total Bilirubin 0.2 D AST 14 L ALT 27 Alkaline Phosphatase 90 D Total Protein 7.2 Albumin 3.9 Urine Color Urine Appearance Urine pH Ur Specific [place] Urine Protein Urine Glucose (UA) Urine Ketones Urine Blood Urine Nitrite Urine Bilirubin Urine Urobilinogen Ur Leukocyte Esterase Valproic Acid HIV 1&2 Antibody Screen Negative HIV P24 Antigen Negative 10/31/17 11/01/17 23:42 06:00 WBC RBC Hgb Hct MCV MCH MCHC RDW Plt Count MPV Sodium Potassium Chloride Carbon Dioxide Anion Gap BUN Creatinine Creat Clearance w eGFR Random Glucose Calcium Total Bilirubin AST ALT Alkaline Phosphatase Total Protein Albumin Urine Color Yellow Urine Appearance Clear Urine pH 7.0 Ur Specific [place] 1.020 Urine Protein Negative Urine Glucose (UA) Negative Urine Ketones Negative Urine Blood Negative Urine Nitrite Negative Urine Bilirubin Negative Urine Urobilinogen Negative Ur Leukocyte Esterase Negative Valproic Acid 57.877 HIV 1&2 Antibody Screen HIV P24 Antigen LABS NOTED. RPR, HCV AB RESULT PENDING. 11/01/17 11:45 Assessment: 11/01/17 11:43 WITHDRAWAL SYMPTOMS. Plan: CONTINUE DETOX. INCREASE DAILY PO FLUID INTAKE.
[2017-11-01] MEDS: risperiDONE 3 MG TABLET PO SCH (22:13)
[2017-11-01] MEDS: THIAMINE HCL 100 MG TABLET (FP) PO SCH (22:13)
[2017-11-01] MEDS: QUEtiapine FUMARATE 100 MG TABLET (FP) PO SCH (22:13)
[2017-11-02] MEDS: chlordiazePOXIDE HCL 25 MG CAPSULE PO SCH ×2 (05:10→10:17)
[2017-11-02] MEDS: risperiDONE 2 MG TABLET PO SCH (06:10)
[2017-11-02] MEDS: DIVALPROEX SODIUM 500 MG TABLET E.C. PO SCH ×2 (10:17→22:07)
[2017-11-02] MEDS: HYDROCORTISONE 1% TOPICAL OINT 30 GM TUBE TP SCH ×2 (10:17→22:10)
[2017-11-02] MEDS: NICOTINE 21 MG/24 HOURS TOPICAL PATCH TD SCH (10:17)
[2017-11-02] MEDS: PRENATAL VITAMINS W/ FOLIC ACID TABLET (FP) PO SCH (10:17)
--- NOTE | 2017-11-02 16:07 | PN ---
S CIWA - CIWA Score Nausea/Vomitin-No Nausea/No Vomiting Muscle Tremors: 3 Anxiety: 3 Agitation: 3 Paroxysmal Sweats: No Perspiration Orientation: 0-Oriented Tacttile Disturbances: 2-Mild Itch/Numbness/Burn Auditory Disturbances: 0-None Visual Disturbances: 0-None Headache: 3-Moderate CIWA-Ar Total Score: 14 BHS Progress Note (SOAP) Subjective: Tremors, Interrupted sleep, Body Aches, H/A. Objective: PATIENT A & O X 3, OBSERVED AMBULATING ON UNIT. NO ACUTE DISTRESS. 11/02/17 16:05 Vital Signs Temperature 97.9 F 11/02/17 11:04 Pulse Rate 85 11/02/17 11:04 Respiratory Rate 18 11/02/17 11:04 Blood Pressure 106/59 11/02/17 11:04 O2 Sat by Pulse Oximetry (%) Laboratory Tests 10/31/17 10/31/17 10/31/17 12:00 14:00 14:00 WBC 9.4 D RBC 4.51 Hgb 13.9 Hct 40.1 MCV 88.9 MCH 30.7 MCHC 34.6 RDW 13.3 Plt Count 207 MPV 9.8 Sodium 143 Potassium 4.1 Chloride 105 Carbon Dioxide 29 Anion Gap 9 BUN 15 Creatinine 1.2 Creat Clearance w eGFR > 60 Random Glucose 105 D Calcium 9.1 Total Bilirubin 0.2 D AST 14 L ALT 27 Alkaline Phosphatase 90 D Total Protein 7.2 Albumin 3.9 Urine Color Urine Appearance Urine pH Ur Specific [place] Urine Protein Urine Glucose (UA) Urine Ketones Urine Blood Urine Nitrite Urine Bilirubin Urine Urobilinogen Ur Leukocyte Esterase Valproic Acid RPR Titer Hep C Ab Diagnostic Liver Fibrosis Interp HIV 1&2 Antibody Screen Negative HIV P24 Antigen Negative 10/31/17 10/31/17 10/31/17 14:00 14:00 23:42 WBC RBC Hgb Hct MCV MCH MCHC RDW Plt Count MPV Sodium Potassium Chloride Carbon Dioxide Anion Gap BUN Creatinine Creat Clearance w eGFR Random Glucose Calcium Total Bilirubin AST ALT Alkaline Phosphatase Total Protein Albumin Urine Color Yellow Urine Appearance Clear Urine pH 7.0 Ur Specific [place] 1.020 Urine Protein Negative Urine Glucose (UA) Negative Urine Ketones Negative Urine Blood Negative Urine Nitrite Negative Urine Bilirubin Negative Urine Urobilinogen Negative Ur Leukocyte Esterase Negative Valproic Acid RPR Titer Nonreactive Hep C Ab Diagnostic <0.1 Liver Fibrosis Interp HIV 1&2 Antibody Screen HIV P24 Antigen 11/01/17 06:00 WBC RBC Hgb Hct MCV MCH MCHC RDW Plt Count MPV Sodium Potassium Chloride Carbon Dioxide Anion Gap BUN Creatinine Creat Clearance w eGFR Random Glucose Calcium Total Bilirubin AST ALT Alkaline Phosphatase Total Protein Albumin Urine Color Urine Appearance Urine pH Ur Specific [place] Urine Protein Urine Glucose (UA) Urine Ketones Urine Blood Urine Nitrite Urine Bilirubin Urine Urobilinogen Ur Leukocyte Esterase Valproic Acid 57.877 RPR Titer Hep C Ab Diagnostic Liver Fibrosis Interp HIV 1&2 Antibody Screen HIV P24 Antigen labs noted. Assessment: 11/02/17 16:05 WITHDRAWAL SYMPTOMS. Plan: CONTINUE DETOX. INCREASE DAILY PO FLUID INTAKE.
[2017-11-02] MEDS: chlordiazePOXIDE 5 MG CAPSULE PO SCH ×2 (17:53→22:07)
[2017-11-02] MEDS: IBUPROFEN 400 MG TABLET (FP) PO PRN (19:02)
[2017-11-02] MEDS: ACETAMINOPHEN 325 MG TABLET (FP) PO PRN (20:04)
[2017-11-02] MEDS: QUEtiapine FUMARATE 100 MG TABLET (FP) PO SCH (22:07)
[2017-11-02] MEDS: THIAMINE HCL 100 MG TABLET (FP) PO SCH (22:07)
[2017-11-02] MEDS: risperiDONE 3 MG TABLET PO SCH (22:07)
[2017-11-03] MEDS: chlordiazePOXIDE 5 MG CAPSULE PO SCH ×2 (05:08→10:09)
[2017-11-03] MEDS: risperiDONE 2 MG TABLET PO SCH (06:08)
[2017-11-03] MEDS: DIVALPROEX SODIUM 500 MG TABLET E.C. PO SCH ×2 (10:09→22:05)
[2017-11-03] MEDS: PRENATAL VITAMINS W/ FOLIC ACID TABLET (FP) PO SCH (10:09)
[2017-11-03] MEDS: HYDROCORTISONE 1% TOPICAL OINT 30 GM TUBE TP SCH ×2 (10:09→22:05)
[2017-11-03] MEDS: NICOTINE 21 MG/24 HOURS TOPICAL PATCH TD SCH (10:09)
--- NOTE | 2017-11-03 10:25 | PN ---
[facility] Progress Note (SOAP) Subjective: sweats restless Objective: 11/03/17 10:25 Vital Signs Temperature 96 F L 11/03/17 05:57 Pulse Rate 55 L 11/03/17 05:57 Respiratory Rate 18 11/03/17 05:57 Blood Pressure 103/60 11/03/17 05:57 O2 Sat by Pulse Oximetry (%) [id number] ambulating no acute distress Assessment: 11/03/17 10:25 mild withdrawal sx Plan: continue detox d/c in am
[2017-11-03] MEDS: ACETAMINOPHEN 325 MG TABLET (FP) PO PRN ×3 (10:27→22:08)
[2017-11-03] MEDS ORDERED: chlordiazePOXIDE 5 MG CAPSULE ONE ×2 (17:28→20:04)
[2017-11-03] MEDS: chlordiazePOXIDE HCL 10 MG CAPSULE PO SCH ×2 (17:29→22:06)
[2017-11-03] MEDS: risperiDONE 3 MG TABLET PO SCH (22:05)
[2017-11-03] MEDS: THIAMINE HCL 100 MG TABLET (FP) PO SCH (22:05)
[2017-11-03] MEDS: QUEtiapine FUMARATE 100 MG TABLET (FP) PO SCH (22:05)
[2017-11-04] MEDS: chlordiazePOXIDE HCL 10 MG CAPSULE PO SCH ×2 (05:11→10:02)
[2017-11-04] MEDS: ACETAMINOPHEN 325 MG TABLET (FP) PO PRN (05:22)
[2017-11-04] MEDS: risperiDONE 2 MG TABLET PO SCH (07:02)
[2017-11-04 09:07] VITALS: BP 108/78; PULSE 91; TEMP 95.3
[2017-11-04] MEDS: IBUPROFEN 400 MG TABLET (FP) PO PRN (09:14)
[2017-11-04] MEDS: DIVALPROEX SODIUM 500 MG TABLET E.C. PO SCH (10:01)
[2017-11-04] MEDS: PRENATAL VITAMINS W/ FOLIC ACID TABLET (FP) PO SCH (10:01)
[2017-11-04] MEDS: HYDROCORTISONE 1% TOPICAL OINT 30 GM TUBE TP SCH (10:02)
[2017-11-04] MEDS: NICOTINE 21 MG/24 HOURS TOPICAL PATCH TD SCH (10:02)
--- NOTE | 2017-11-04 12:46 | PN ---
[facility] Progress Note (SOAP) Subjective: Earlier on during AM Rounds assessment, Patient reported diarrhea since earlier this AM. Patient denies any other Detox symptoms. Later on in AM, patient reported that diarrhea had subsided somewhat. Objective: PATIENT A & O X 3, OBSERVED AMBULATING ON UNIT. NO ACUTE DISTRESS. 11/04/17 12:43 Vital Signs Temperature 95.3 F L 11/04/17 09:06 Pulse Rate 91 H 11/04/17 09:06 Respiratory Rate 18 11/04/17 09:06 Blood Pressure 108/78 11/04/17 09:06 O2 Sat by Pulse Oximetry (%) Laboratory Tests 10/31/17 10/31/17 10/31/17 12:00 14:00 14:00 WBC 9.4 D RBC 4.51 Hgb 13.9 Hct 40.1 MCV 88.9 MCH 30.7 MCHC 34.6 RDW 13.3 Plt Count 207 MPV 9.8 Sodium 143 Potassium 4.1 Chloride 105 Carbon Dioxide 29 Anion Gap 9 BUN 15 Creatinine 1.2 Creat Clearance w eGFR > 60 Random Glucose 105 D Calcium 9.1 Total Bilirubin 0.2 D AST 14 L ALT 27 Alkaline Phosphatase 90 D Total Protein 7.2 Albumin 3.9 Urine Color Urine Appearance Urine pH Ur Specific [place] Urine Protein Urine Glucose (UA) Urine Ketones Urine Blood Urine Nitrite Urine Bilirubin Urine Urobilinogen Ur Leukocyte Esterase Valproic Acid RPR Titer Hep C Ab Diagnostic Liver Fibrosis Interp HIV 1&2 Antibody Screen Negative HIV P24 Antigen Negative 10/31/17 10/31/17 10/31/17 14:00 14:00 23:42 WBC RBC Hgb Hct MCV MCH MCHC RDW Plt Count MPV Sodium Potassium Chloride Carbon Dioxide Anion Gap BUN Creatinine Creat Clearance w eGFR Random Glucose Calcium Total Bilirubin AST ALT Alkaline Phosphatase Total Protein Albumin Urine Color Yellow Urine Appearance Clear Urine pH 7.0 Ur Specific [place] 1.020 Urine Protein Negative Urine Glucose (UA) Negative Urine Ketones Negative Urine Blood Negative Urine Nitrite Negative Urine Bilirubin Negative Urine Urobilinogen Negative Ur Leukocyte Esterase Negative Valproic Acid RPR Titer Nonreactive Hep C Ab Diagnostic <0.1 Liver Fibrosis Interp HIV 1&2 Antibody Screen HIV P24 Antigen 11/01/17 06:00 WBC RBC Hgb Hct MCV MCH MCHC RDW Plt Count MPV Sodium Potassium Chloride Carbon Dioxide Anion Gap BUN Creatinine Creat Clearance w eGFR Random Glucose Calcium Total Bilirubin AST ALT Alkaline Phosphatase Total Protein Albumin Urine Color Urine Appearance Urine pH Ur Specific [place] Urine Protein Urine Glucose (UA) Urine Ketones Urine Blood Urine Nitrite Urine Bilirubin Urine Urobilinogen Ur Leukocyte Esterase Valproic Acid 57.877 RPR Titer Hep C Ab Diagnostic Liver Fibrosis Interp HIV 1&2 Antibody Screen HIV P24 Antigen LABS NOTED. Assessment: 11/04/17 12:44 COMPLETION OF DETOX REGIMEN. Plan: PATIENT SCHEDULED FOR DISCHARGE FROM DETOX TODAY. PATIENT SCHEDULED TO GO ON TO [facility] FOR AFTERCARE.
--- NOTE | 2017-11-04 12:49 | DS ---
[facility] Detox Discharge Summary Admission Date: 10/31/17 Discharge Date: 11/04/17 - History Present History: Alcohol Dependence, Cocaine Dependence Additional Comments: PATIENT GOING TO [facility] ([facility] FOR AFTERCARE. PATIENT WAS DISCHARGED FROM DETOX UNIT IN STABLE CONDITION. Pertinent Past History: Tinea Versicolor, Depression, Bipolar disorder, Nicotine Dependence, GERD, History of Anemia. - Physical Exam Results Vital Signs: Vital Signs Temperature 95.3 F L 11/04/17 09:06 Pulse Rate 91 H 11/04/17 09:06 Respiratory Rate 18 11/04/17 09:06 Blood Pressure 108/78 11/04/17 09:06 O2 Sat by Pulse Oximetry (%) Pertinent Admission Physical Exam Findings: WITHDRAWAL SYMPTOMS. Laboratory Tests 10/31/17 10/31/17 10/31/17 12:00 14:00 14:00 WBC 9.4 D RBC 4.51 Hgb 13.9 Hct 40.1 MCV 88.9 MCH 30.7 MCHC 34.6 RDW 13.3 Plt Count 207 MPV 9.8 Sodium 143 Potassium 4.1 Chloride 105 Carbon Dioxide 29 Anion Gap 9 BUN 15 Creatinine 1.2 Creat Clearance w eGFR > 60 Random Glucose 105 D Calcium 9.1 Total Bilirubin 0.2 D AST 14 L ALT 27 Alkaline Phosphatase 90 D Total Protein 7.2 Albumin 3.9 Urine Color Urine Appearance Urine pH Ur Specific [place] Urine Protein Urine Glucose (UA) Urine Ketones Urine Blood Urine Nitrite Urine Bilirubin Urine Urobilinogen Ur Leukocyte Esterase Valproic Acid RPR Titer Hep C Ab Diagnostic Liver Fibrosis Interp HIV 1&2 Antibody Screen Negative HIV P24 Antigen Negative 10/31/17 10/31/17 10/31/17 14:00 14:00 23:42 WBC RBC Hgb Hct MCV MCH MCHC RDW Plt Count MPV Sodium Potassium Chloride Carbon Dioxide Anion Gap BUN Creatinine Creat Clearance w eGFR Random Glucose Calcium Total Bilirubin AST ALT Alkaline Phosphatase Total Protein Albumin Urine Color Yellow Urine Appearance Clear Urine pH 7.0 Ur Specific [place] 1.020 Urine Protein Negative Urine Glucose (UA) Negative Urine Ketones Negative Urine Blood Negative Urine Nitrite Negative Urine Bilirubin Negative Urine Urobilinogen Negative Ur Leukocyte Esterase Negative Valproic Acid RPR Titer Nonreactive Hep C Ab Diagnostic <0.1 Liver Fibrosis Interp HIV 1&2 Antibody Screen HIV P24 Antigen 11/01/17 06:00 WBC RBC Hgb Hct MCV MCH MCHC RDW Plt Count MPV Sodium Potassium Chloride Carbon Dioxide Anion Gap BUN Creatinine Creat Clearance w eGFR Random Glucose Calcium Total Bilirubin AST ALT Alkaline Phosphatase Total Protein Albumin Urine Color Urine Appearance Urine pH Ur Specific [place] Urine Protein Urine Glucose (UA) Urine Ketones Urine Blood Urine Nitrite Urine Bilirubin Urine Urobilinogen Ur Leukocyte Esterase Valproic Acid 57.877 RPR Titer Hep C Ab Diagnostic Liver Fibrosis Interp HIV 1&2 Antibody Screen HIV P24 Antigen LABS NOTED. - Treatment Hospital Course: Detox Protocol Followed, Detoxed Safely, Responded well, Discharged Condition Good, Rehab Referral Accepted Patient has Accepted a Rehab Referral to: [facility] ([place] [place] [place] ). - Medication Discharge Medications: Ambulatory Orders Quetiapine Fumarate [Seroquel] 100 mg PO HS #30 tablet 10/15/16 Divalproex [Depakote -] 500 mg PO BID #60 tablet.ec 10/31/17 Quetiapine Fumarate [Seroquel] 100 mg PO HS #30 tablet 10/31/17 Risperidone [Risperdal -] 2 mg PO AM #30 tablet 10/31/17 Risperidone [Risperdal -] 3 mg PO HS #30 tablet 10/31/17 - Diagnosis (1) Alcohol dependence with uncomplicated withdrawal Current Visit: Yes Status: Acute (2) Cocaine dependence, uncomplicated Current Visit: Yes Status: Acute (3) Nicotine dependence Current Visit: Yes Status: Acute Qualifiers: Nicotine product type: cigarettes Substance use status: in withdrawal Qualified Code(s): F17.213 - Nicotine dependence, cigarettes, with withdrawal (4) Tinea versicolor Current Visit: Yes Status: Chronic (5) GERD (gastroesophageal reflux disease) Current Visit: Yes Status: Suspected Qualifiers: Esophagitis presence: esophagitis presence not specified Qualified Code(s) : K21.9 - Gastro-esophageal reflux disease without esophagitis (6) History of anemia Current Visit: Yes Status: Suspected (7) Substance induced mood disorder Current Visit: Yes Status: Acute (8) Bipolar affective disorder, mixed, moderate Current Visit: Yes Status: Chronic - AMA Did Patient Leave Against Medical Advice: No
== END 2017-11-04 12:34 | disposition other institution (70) | DRG 774 ==
LOC: YASAS 10:41 → Y3N 14:48
PROVIDERS: ADMIT Internal Medicine; ATTEND Internal Medicine
PROC: HZ2ZZZZ Detoxification Services for Substance Abuse Treatment (ICD-10-PCS; principal; 2017-10-31)
DX: F10.230 Alcohol dependence with withdrawal, uncomplicated (principal); F14.20 Cocaine dependence, uncomplicated; F17.210 Nicotine dependence, cigarettes, uncomplicated; F31.62 Bipolar disorder, current episode mixed, moderate; K21.9 Gastro-esophageal reflux disease without esophagitis; Z86.2 Personal history of diseases of the blood and blood-forming organs and certain disorders involving the immune mechanism
CPT/HCPCS: 36415; 80053; 80164; 81003; 85027; 86593; 87389; 93005; 93010

== ENCOUNTER 2017-11-04 12:45 | Inpatient (IN) | payer OTHER ==
[2017-11-04] MEDS ORDERED: MENTHOL/PHENOL 1 EACH UD MM PRN (12:52)
[2017-11-04] MEDS ORDERED: IBUPROFEN 400 MG TABLET (FP) PO PRN (12:52)
[2017-11-04] MEDS ORDERED: P-EPHED 60MG/TRIPROLIDI 2.5MG TABLET PO PRN (12:52)
[2017-11-04] MEDS ORDERED: MAGNESIUM CITRATE 300 ML BOTTLE PO PRN (12:52)
[2017-11-04] MEDS ORDERED: MAG HYDROX/AL HYDROX/SIMETH 30 ML UNIT-DOSE CUP PO PRN (12:52)
[2017-11-04] MEDS ORDERED: guaiFENesin/D-METHORPHAN HB 10 ML UNIT-DOSE CUPS PO PRN (12:52)
[2017-11-04] MEDS ORDERED: LOPERAMIDE HCL 2 MG CAPSULE PO PRN (12:52)
--- NOTE | 2017-11-04 12:56 | HP ---
[facility] Rehab Assess/Revision - Admission History Admitted to Rehab from: [facility] Date of Admission to Rehab: 11/04/2017 - Vital signs Vital Signs: NOTED; STABLE. - Findings Detox History & Physical reviewed: Yes Concur with findings: Yes Comments/Additional Findings: PATIENT'S MEDICAL / MEDICATION HISTORY REVIEWED PRIOR TO DISCHARGE FROM DETOX UNIT. PATIENT WAS DISCHARGED FROM DETOX UNIT TO BE TAKEN TO REHAB UNIT IN STABLE MEDICAL CONDITON. Inpatient Rehab Admission - Initial Determination Are CD services needed?: Yes Free of communicable disease: Yes Not in need of hospitalization: Yes - Rehab Admission Criteria Previous failed treatment: Yes Comorbidities: Yes Patient is meeting Inpatient Rehab admission criteria:: Yes
[2017-11-04] MEDS ORDERED: LIDOCAINE VISCOUS 2% ORAL/TOP 20 ML UNIT-DOSE CUP MM PRN (13:36)
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
[2017-11-04] MEDS: IBUPROFEN 600 MG TABLET (FP) PO PRN (15:17)
[2017-11-04] MEDS: HYDROCORTISONE 0.5% TOPICAL OINTMENT TUBE TP SCH (15:18)
[2017-11-04] MEDS: MAGNESIUM HYDROX 2400MG/30ML ORAL SUSPENSION 30 ML CUP PO PRN (18:41)
[2017-11-04] MEDS: THIAMINE HCL 100 MG TABLET (FP) PO SCH (21:46)
[2017-11-04] MEDS: ACETAMINOPHEN 325 MG TABLET (FP) PO PRN (21:47)
[2017-11-04] MEDS: QUEtiapine FUMARATE 50 MG TABLET PO SCH (21:47)
[2017-11-04] MEDS: DIVALPROEX SODIUM 500 MG TABLET E.C. PO SCH (21:47)
[2017-11-04] MEDS: risperiDONE 3 MG TABLET PO SCH (21:47)
[2017-11-04] MEDS: MELATONIN 5 MG TABLETS PO PRN (22:21)
[2017-11-05] MEDS: risperiDONE 2 MG TABLET PO SCH (06:48)
[2017-11-05] MEDS: PRENATAL VITAMINS W/ FOLIC ACID TABLET (FP) PO SCH (10:25)
[2017-11-05] MEDS: DIVALPROEX SODIUM 500 MG TABLET E.C. PO SCH ×2 (10:25→21:28)
[2017-11-05] MEDS: ACETAMINOPHEN 325 MG TABLET (FP) PO PRN (10:26)
[2017-11-05] MEDS: HYDROCORTISONE 0.5% TOPICAL OINTMENT TUBE TP SCH (10:41)
[2017-11-05] MEDS: NICOTINE 21 MG/24 HOURS TOPICAL PATCH TD SCH (10:41)
[2017-11-05] MEDS: IBUPROFEN 600 MG TABLET (FP) PO PRN ×2 (13:44→22:13)
[2017-11-05] MEDS ORDERED: COLLOIDAL OATMEAL 1 BAR EACH TP PRN (15:31)
[2017-11-05] MEDS ORDERED: HYDROCORTISONE 0.5% TOPICAL OINTMENT TUBE TP SCH (15:32)
--- NOTE | 2017-11-05 15:36 | PN ---
S Progress Note Note: Patient c/o of dry skin on the left lower extremity and pain on the left arm, as per patient pain is d/t doing push ups. Vital Signs Temperature 99.3 F 11/05/17 07:55 Pulse Rate 96 H 11/05/17 07:55 Respiratory Rate 18 11/05/17 07:55 Blood Pressure 149/96 11/05/17 07:55 O2 Sat by Pulse Oximetry (%) A/ P Patient AOx3 self directing, no apparent distress + pain on the left arm when moving in an upward motion + dry skin patches on the left lower extremities Hydorcortisone cream to the affected area on the left lwoer extremity Lidocaine patch to the left arm Increase fluids continue to monitor
--- NOTE | 2017-11-05 15:43 | PN ---
S Progress Note Note: Patient c/o of toothache. Vital Signs Temperature 99.3 F 11/05/17 07:55 Pulse Rate 96 H 11/05/17 07:55 Respiratory Rate 18 11/05/17 07:55 Blood Pressure 149/96 11/05/17 07:55 O2 Sat by Pulse Oximetry (%) A/ P No signs and symptoms of infection No distress , ambualting in the units Continue anbesol PRN Ibuprofen PRN Continue to monitor patient to follow up with dentist upon discharge
[2017-11-05] MEDS ORDERED: LIDOCAINE 5% TOPICAL PATCH TP SCH (16:00)
[2017-11-05] MEDS: risperiDONE 3 MG TABLET PO SCH (21:28)
[2017-11-05] MEDS: THIAMINE HCL 100 MG TABLET (FP) PO SCH (21:28)
[2017-11-05] MEDS: QUEtiapine FUMARATE 50 MG TABLET PO SCH (21:28)
[2017-11-05] MEDS: MELATONIN 5 MG TABLETS PO PRN (21:30)
[2017-11-05] MEDS ORDERED: LIDOCAINE PATCH REMOVAL MC SCH (22:00)
[2017-11-06] MEDS: risperiDONE 2 MG TABLET PO SCH (06:43)
[2017-11-06] MEDS: ACETAMINOPHEN 325 MG TABLET (FP) PO PRN ×2 (07:31→21:35)
[2017-11-06] MEDS: NICOTINE 21 MG/24 HOURS TOPICAL PATCH TD SCH (10:31)
[2017-11-06] MEDS: DIVALPROEX SODIUM 500 MG TABLET E.C. PO SCH ×2 (10:31→21:34)
[2017-11-06] MEDS: PRENATAL VITAMINS W/ FOLIC ACID TABLET (FP) PO SCH (10:31)
[2017-11-06] MEDS: MAGNESIUM HYDROX 2400MG/30ML ORAL SUSPENSION 30 ML CUP PO PRN (14:33)
[2017-11-06] MEDS: MELATONIN 5 MG TABLETS PO PRN (21:34)
[2017-11-06] MEDS: THIAMINE HCL 100 MG TABLET (FP) PO SCH (21:34)
[2017-11-06] MEDS: risperiDONE 3 MG TABLET PO SCH (21:34)
[2017-11-06] MEDS: QUEtiapine FUMARATE 50 MG TABLET PO SCH (21:34)
[2017-11-07] MEDS: risperiDONE 2 MG TABLET PO SCH (07:01)
[2017-11-07] MEDS: NICOTINE 21 MG/24 HOURS TOPICAL PATCH TD SCH (10:20)
[2017-11-07] MEDS: DIVALPROEX SODIUM 500 MG TABLET E.C. PO SCH ×2 (10:20→21:51)
[2017-11-07] MEDS: PRENATAL VITAMINS W/ FOLIC ACID TABLET (FP) PO SCH (10:20)
[2017-11-07] MEDS: NICOTINE POLACRILEX 4 MG GUM BUC PRN ×2 (10:20→15:51)
[2017-11-07] MEDS: ACETAMINOPHEN 325 MG TABLET (FP) PO PRN ×2 (10:21→21:54)
[2017-11-07] MEDS: IBUPROFEN 600 MG TABLET (FP) PO PRN (19:22)
[2017-11-07] MEDS: risperiDONE 3 MG TABLET PO SCH (21:51)
[2017-11-07] MEDS: THIAMINE HCL 100 MG TABLET (FP) PO SCH (21:51)
[2017-11-07] MEDS: QUEtiapine FUMARATE 50 MG TABLET PO SCH (21:51)
[2017-11-07] MEDS: MELATONIN 5 MG TABLETS PO PRN (21:54)
[2017-11-08] MEDS: risperiDONE 2 MG TABLET PO SCH (06:15)
[2017-11-08] MEDS: ACETAMINOPHEN 325 MG TABLET (FP) PO PRN ×2 (07:24→21:29)
[2017-11-08] MEDS: DIVALPROEX SODIUM 500 MG TABLET E.C. PO SCH ×2 (10:43→21:29)
[2017-11-08] MEDS: PRENATAL VITAMINS W/ FOLIC ACID TABLET (FP) PO SCH (10:43)
[2017-11-08] MEDS: NICOTINE 21 MG/24 HOURS TOPICAL PATCH TD SCH (10:43)
[2017-11-08] MEDS: IBUPROFEN 600 MG TABLET (FP) PO PRN (14:45)
--- NOTE | 2017-11-08 15:12 | PN ---
[facility] Progress Note Note: Patient presents with complaint of nasal stuffiness, headache body aches. Also has itching to face and was treated with hydrocortisone. Obj: skin warm and dry. Pt ambulating in unit, in NAD. Vital Signs Temperature 97.9 F 11/08/17 07:20 Pulse Rate 64 11/08/17 07:20 Respiratory Rate 18 11/08/17 07:20 Blood Pressure 140/78 11/08/17 07:20 O2 Sat by Pulse Oximetry (%) A/P: Pruritis to face Withdrawal symptoms Will continue supportive care and medications as ordered Refill hydrocortisone ointment continue to monitor clincally
[2017-11-08] MEDS: risperiDONE 3 MG TABLET PO SCH (21:29)
[2017-11-08] MEDS: MELATONIN 5 MG TABLETS PO PRN (21:29)
[2017-11-08] MEDS: QUEtiapine FUMARATE 50 MG TABLET PO SCH (21:29)
[2017-11-08] MEDS: THIAMINE HCL 100 MG TABLET (FP) PO SCH (21:29)
[2017-11-09] MEDS: risperiDONE 2 MG TABLET PO SCH (06:15)
[2017-11-09] MEDS: HYDROCORTISONE 0.5% TOPICAL OINTMENT TUBE TP PRN (06:58)
[2017-11-09] MEDS: ACETAMINOPHEN 325 MG TABLET (FP) PO PRN (06:59)
[2017-11-09] MEDS: DIVALPROEX SODIUM 500 MG TABLET E.C. PO SCH ×2 (10:20→21:38)
[2017-11-09] MEDS: NICOTINE 21 MG/24 HOURS TOPICAL PATCH TD SCH (10:20)
[2017-11-09] MEDS: PRENATAL VITAMINS W/ FOLIC ACID TABLET (FP) PO SCH (10:20)
[2017-11-09] MEDS: NICOTINE POLACRILEX 4 MG GUM BUC PRN (10:21)
[2017-11-09] MEDS: IBUPROFEN 600 MG TABLET (FP) PO PRN ×2 (12:23→20:32)
[2017-11-09] MEDS: risperiDONE 3 MG TABLET PO SCH (21:38)
[2017-11-09] MEDS: QUEtiapine FUMARATE 50 MG TABLET PO SCH (21:38)
[2017-11-09] MEDS: THIAMINE HCL 100 MG TABLET (FP) PO SCH (21:38)
[2017-11-09] MEDS: MELATONIN 5 MG TABLETS PO PRN (21:39)
[2017-11-10] MEDS: risperiDONE 2 MG TABLET PO SCH (07:00)
[2017-11-10] MEDS: IBUPROFEN 600 MG TABLET (FP) PO PRN ×2 (08:11→16:48)
[2017-11-10] MEDS: PRENATAL VITAMINS W/ FOLIC ACID TABLET (FP) PO SCH (10:02)
[2017-11-10] MEDS: NICOTINE 21 MG/24 HOURS TOPICAL PATCH TD SCH (10:02)
[2017-11-10] MEDS: DIVALPROEX SODIUM 500 MG TABLET E.C. PO SCH ×2 (10:02→21:23)
[2017-11-10] MEDS: HYDROCORTISONE 0.5% TOPICAL OINTMENT TUBE TP PRN (15:00)
[2017-11-10] MEDS: QUEtiapine FUMARATE 50 MG TABLET PO SCH (21:22)
[2017-11-10] MEDS: risperiDONE 3 MG TABLET PO SCH (21:23)
[2017-11-10] MEDS: THIAMINE HCL 100 MG TABLET (FP) PO SCH (21:23)
[2017-11-10] MEDS: ACETAMINOPHEN 325 MG TABLET (FP) PO PRN (21:24)
[2017-11-10] MEDS: MELATONIN 5 MG TABLETS PO PRN (21:25)
[2017-11-11] MEDS: risperiDONE 2 MG TABLET PO SCH (06:17)
[2017-11-11] MEDS: IBUPROFEN 600 MG TABLET (FP) PO PRN ×2 (06:18→16:48)
[2017-11-11] MEDS: PRENATAL VITAMINS W/ FOLIC ACID TABLET (FP) PO SCH (10:44)
[2017-11-11] MEDS: DIVALPROEX SODIUM 500 MG TABLET E.C. PO SCH ×2 (10:45→21:24)
[2017-11-11] MEDS: NICOTINE 21 MG/24 HOURS TOPICAL PATCH TD SCH (10:45)
[2017-11-11] MEDS: ACETAMINOPHEN 325 MG TABLET (FP) PO PRN ×2 (10:46→21:24)
[2017-11-11] MEDS: HYDROCORTISONE 0.5% TOPICAL OINTMENT TUBE TP PRN (10:47)
[2017-11-11] MEDS: risperiDONE 3 MG TABLET PO SCH (21:24)
[2017-11-11] MEDS: THIAMINE HCL 100 MG TABLET (FP) PO SCH (21:24)
[2017-11-11] MEDS: MELATONIN 5 MG TABLETS PO PRN (21:24)
[2017-11-11] MEDS: QUEtiapine FUMARATE 50 MG TABLET PO SCH (21:24)
[2017-11-12] MEDS: risperiDONE 2 MG TABLET PO SCH (06:37)
[2017-11-12 07:00] VITALS: BP 107/69; PULSE 82; TEMP 98.2
[2017-11-12] MEDS: PRENATAL VITAMINS W/ FOLIC ACID TABLET (FP) PO SCH (10:24)
[2017-11-12] MEDS: DIVALPROEX SODIUM 500 MG TABLET E.C. PO SCH (10:24)
[2017-11-12] MEDS: NICOTINE 21 MG/24 HOURS TOPICAL PATCH TD SCH (10:24)
--- NOTE | 2017-11-12 10:34 | PN ---
Psychiatric Progress Note Vital Signs: Vital Signs Period Temp Pulse Resp BP Sys/Sharma Pulse Ox Last 24 Hr 98.2 F 82 16-18 107/69 Date of Session: 11/12/17 Chief Complaint:: discharge visit HPI: Patient has address cocaine, alcohol, nicotine dependence comorbid Bipolar I mixed epsiode. ROS: HTN and GERD medically managed. Current Medications: Active Medications Generic Name Dose Route Start Last Admin Trade Name Freq PRN Reason Stop Dose Admin Acetaminophen 650 mg 11/04/17 12:52 11/11/17 21:24 Tylenol - PO 650 mg Q4H PRN Administration FEVER Al Hydroxide/Mg Hydroxide 30 ml 11/04/17 12:52 Mylanta Oral Suspension - PO Q6H PRN DYSPEPSIA Colloidal Oatmeal 1 applic 11/05/17 15:31 11/09/17 06:59 Aveeno Soap - TP 1 applic DAILY PRN Administration HYGEINE Divalproex Sodium 500 mg 11/04/17 22:00 11/12/17 10:24 Depakote - PO 500 mg BID LASHONDA Administration Eucalyptus/Menthol/Phenol/Sorbitol 1 each 11/04/17 12:52 Cepastat Lozenge - MM Q4H PRN SORE THROAT Guaifenesin 10 ml 11/04/17 12:52 Robitussin Dm - PO Q6H PRN COUGH Hydrocortisone 1 applic 11/08/17 15:02 11/11/17 10:47 Hytone 0.5% Ointment - TP 1 applic BID PRN Administration FOR ITCHING Ibuprofen 600 mg 11/04/17 13:37 11/11/17 16:48 Motrin - PO 600 mg Q8H PRN Administration Pain Level 4-6 Lidocaine HCl 20 ml 11/04/17 13:36 Xylocaine 2% Viscous Oral - MM TID PRN ORAL PAIN/MOUTH SORES Loperamide HCl 4 mg 11/04/17 12:52 Imodium - PO Q6H PRN DIARRHEA Magnesium Citrate 300 ml 11/04/17 12:52 Citroma - PO Q48H PRN CONSTIPATION Magnesium Hydroxide 30 ml 11/04/17 12:52 11/06/17 14:33 Milk Of Magnesia - PO 30 ml DAILY PRN Administration CONSTIPATION Melatonin 5 mg 11/04/17 22:00 11/11/17 21:24 Melatonin PO 5 mg HS PRN Administration INSOMNIA Nicotine 21 mg 11/05/17 10:00 11/12/17 10:24 Nicoderm Patch - TD Not Given DAILY LASHONDA Nicotine Polacrilex 4 mg 11/04/17 12:52 11/09/17 10:21 Nicorette Gum - BUC 4 mg Q2H PRN Administration NICOTINE REPLACEMENT RX Multivit/Folic Acid/Iron 1 tab 11/05/17 10:00 11/12/17 10:24 Vitamins (Sjr) - PO 1 tab DAILY LASHONDA Administration Pseudoephedrine/Triprolidine 1 combo 11/04/17 12:52 Actifed - PO TID PRN NASAL CONGESTION Quetiapine Fumarate 150 mg 11/04/17 22:00 11/11/17 21:24 Seroquel - PO 150 mg HS LASHONDA Administration Risperidone 2 mg 11/05/17 07:00 11/12/17 06:37 Risperdal - PO 2 mg AM LASHONDA Administration Risperidone 3 mg 11/04/17 22:00 11/11/17 21:24 Risperdal - PO 3 mg HS LASHONDA Administration Thiamine HCl 100 mg 11/04/17 22:00 11/11/17 21:24 Vitamin B1 - PO 100 mg HS LASHONDA Administration Current Side Effect: No Lab tests ordered: No Lab tests reviewed: Yes (depakote blood level WNL) Provider note:: Patient has completed today his treatment and met his identified goals, will continue to address his issues at [facility] treatment program. He gained insights into his problems and motivated to continue maintain abstinence and be adherent to every steps of his aftercare plans. Patient continues to finding Depakote (blood level 10/3017 57.877 WNL) , Risperdal and Seroquel were helpfull, he feels better, mood is stable, sleep improved, reduction of anxiety, he reported no side-effects from his current medications, scripts provided for 30 days, patient was encouraged to utilize all supports available to prevent relapses, stable for discharge today. Total face to face time:: 25 Mental Status Exam - Mental Status Exam Alert and Oriented to: Time, Place, Person Cognitive Function: Fair Patient Appearance: Well Groomed Mood: Hopeful Affect: Appropriate, Mood Congruent Patient Behavior: Appropriate, Cooperative Speech Pattern: Clear, Appropriate Voice Loudness: Normal Thought Process: Intact, Goal Oriented Thought Disorder: Not Present Hallucinations: Denies Suicidal Ideation: Denies Homicidal Ideation: Denies Insight/Judgement: Fair Sleep: Well Appetite: Good Muscle strength/Tone: Normal Gait/Station: Normal Psychiatric Treatment Plan - Problem List (1) Alcohol dependence Current Visit: Yes (2) Cocaine dependence Current Visit: Yes (3) Nicotine dependence Current Visit: No Qualifiers: Nicotine product type: cigarettes Substance use status: in withdrawal Qualified Code(s): F17.213 - Nicotine dependence, cigarettes, with withdrawal (4) Bipolar affective disorder, mixed, moderate Current Visit: No
== END 2017-11-12 10:55 | disposition home or self-care (01) | DRG 772 ==
LOC: YASAS 12:45 → Y5N 12:46
PROVIDERS: ADMIT Psychiatry & Neurology Psychiatry; ATTEND Psychiatry & Neurology Psychiatry
PROC: HZ42ZZZ Group Counseling for Substance Abuse Treatment, Cognitive-Behavioral (ICD-10-PCS; principal; 2017-11-04)
DX: F10.20 Alcohol dependence, uncomplicated (principal); F14.20 Cocaine dependence, uncomplicated; F17.210 Nicotine dependence, cigarettes, uncomplicated; F31.62 Bipolar disorder, current episode mixed, moderate; I10 Essential (primary) hypertension; M54.5 Low back pain; K21.9 Gastro-esophageal reflux disease without esophagitis; L29.8 Other pruritus; K08.89 Other specified disorders of teeth and supporting structures

== ENCOUNTER 2018-09-29 13:27 | Inpatient (IN) | payer OTHER ==
[2018-09-29 14:45] VITALS: BMI 25.9
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
[2018-09-29] MEDS ORDERED: MENTHOL/PHENOL 1 EACH UD MM PRN (18:58)
[2018-09-29] MEDS ORDERED: MAGNESIUM HYDROX 2400MG/30ML ORAL SUSPENSION 30 ML CUP PO PRN (18:58)
[2018-09-29] MEDS ORDERED: chlordiazePOXIDE HCL 25 MG CAPSULE PO PRN (18:58)
[2018-09-29] MEDS ORDERED: ACETAMINOPHEN 325 MG TABLET (FP) PO PRN (18:58)
[2018-09-29] MEDS ORDERED: LOPERAMIDE HCL 2 MG CAPSULE PO PRN (18:58)
[2018-09-29] MEDS ORDERED: IBUPROFEN 400 MG TABLET (FP) PO PRN (18:58)
[2018-09-29] MEDS ORDERED: MAG HYDROX/AL HYDROX/SIMETH 30 ML UNIT-DOSE CUP PO PRN (18:58)
[2018-09-29] MEDS ORDERED: MAGNESIUM CITRATE 300 ML BOTTLE PO PRN (18:58)
[2018-09-29] MEDS ORDERED: NICOTINE POLACRILEX 2 MG GUM BC PRN (18:58)
[2018-09-29] MEDS ORDERED: chlordiazePOXIDE HCL 25 MG CAPSULE PO ONE (18:58)
[2018-09-29] MEDS ORDERED: guaiFENesin 200 MG/10 ML 10 ML UNIT-DOSE CUPS PO PRN (18:59)
[2018-09-29] MEDS ORDERED: COLLOIDAL OATMEAL 1 BAR EACH TP PRN (18:59)
[2018-09-29] MEDS ORDERED: MELATONIN 5 MG TABLETS PO PRN ×2 (22:00)
[2018-09-29] MEDS: THIAMINE HCL 100 MG TABLET (FP) PO SCH (22:22)
[2018-09-29] MEDS: chlordiazePOXIDE HCL 25 MG CAPSULE PO SCH (22:22)
[2018-09-29] MEDS: TOLNAFTATE 1% CREAM 15 GM TUBE TP SCH (22:24)
[2018-09-30] MEDS: chlordiazePOXIDE HCL 25 MG CAPSULE PO SCH ×4 (06:24→22:16)
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
[2018-09-30] MEDS: TOLNAFTATE 1% CREAM 15 GM TUBE TP SCH ×2 (10:10→22:16)
[2018-09-30] MEDS: NICOTINE 21 MG/24 HOURS TOPICAL PATCH TD SCH (10:10)
[2018-09-30] MEDS: PRENATAL VITAMINS W/ FOLIC ACID TABLET (FP) PO SCH (10:10)
[2018-09-30] MEDS ORDERED: CYCLOBENZAPRINE HCL 10 MG TABLET (FP) PO PRN (11:47)
[2018-09-30 12:33] LABS: HEMATOCRIT 39.3 % (35.4-49); HEMOGLOBIN 12.9 GM/dL (11.7-16.9); MCH 29.5 pg (25.7-33.7); MCHC 32.9 g/dl (32.0-35.9); MEAN CELL VOLUME 89.6 fl (80-96); PLATELET COUNT 196 K/MM3 (134-434); RBC 4.39 M/mm3 (4.00-5.60); RDW 13.9 % (11.9-15.9)
[2018-09-30 12:57] LABS: ALBUMIN 3.5 g/dl (3.4-5.0); ALK PHOS 59 U/L (45-117); ANION GAP 8 MMOL/L (8-16); BILIRUBIN,TOTAL 0.3 mg/dL (0.2-1); BLOOD UREA NITROGEN 16 mg/dL (7-18); CALCIUM 9.1 mg/dL (8.5-10.1); CHLORIDE 106 mmol/L (98-107); CO2 26 mmol/L (21-32); GLUCOSE,RANDOM 85 mg/dL (74-106); SGOT/AST 13 U/L (15-37); SGPT/ALT 21 U/L (13-61); SODIUM 140 mmol/L (136-145)
--- NOTE | 2018-09-30 13:28 | PN ---
S CIWA - CIWA Score Nausea/Vomitin-No Nausea/No Vomiting Muscle Tremors: None Anxiety: 2 Agitation: 1-Slight > Activity Paroxysmal Sweats: 3 Orientation: 0-Oriented Tacttile Disturbances: 2-Mild Itch/Numbness/Burn Auditory Disturbances: 2-Mild Harshness/Frighten Visual Disturbances: 2-Mild Sensitivity Headache: 0-None Present CIWA-Ar Total Score: 12 BHS Progress Note (SOAP) Subjective: Sweating, Stomach Cramping, Body Aches. Objective: PATIENT A & O X 3, OBSERVED AMBULATING ON UNIT. IN NO ACUTE DISTRESS. 09/30/18 13:29 Vital Signs Temperature 97.3 F L 09/30/18 09:59 Pulse Rate 89 09/30/18 09:59 Respiratory Rate 18 09/30/18 09:59 Blood Pressure 112/62 09/30/18 09:59 O2 Sat by Pulse Oximetry (%) Laboratory Tests 09/30/18 09/30/18 09/30/18 07:00 07:00 07:00 WBC 6.0 RBC 4.39 Hgb 12.9 Hct 39.3 MCV 89.6 MCH 29.5 MCHC 32.9 RDW 13.9 Plt Count 196 MPV 9.0 Sodium 140 Potassium 4.0 Chloride 106 Carbon Dioxide 26 Anion Gap 8 BUN 16 Creatinine 1.0 Creat Clearance w eGFR > 60 Random Glucose 85 Calcium 9.1 Total Bilirubin 0.3 AST 13 L ALT 21 Alkaline Phosphatase 59 Total Protein 6.0 L Albumin 3.5 Valproic Acid 5.3 L RPR Titer 09/30/18 07:00 WBC RBC Hgb Hct MCV MCH MCHC RDW Plt Count MPV Sodium Potassium Chloride Carbon Dioxide Anion Gap BUN Creatinine Creat Clearance w eGFR Random Glucose Calcium Total Bilirubin AST ALT Alkaline Phosphatase Total Protein Albumin Valproic Acid RPR Titer Nonreactive LABS NOTED. Assessment: 09/30/18 13:30 WITHDRAWAL SYMPTOMS. Plan: CONTINUE DETOX.
[2018-09-30] MEDS: QUEtiapine FUMARATE 50 MG TABLET PO SCH (22:15)
[2018-09-30] MEDS: THIAMINE HCL 100 MG TABLET (FP) PO SCH (22:16)
[2018-10-01] MEDS: chlordiazePOXIDE HCL 25 MG CAPSULE PO SCH ×3 (06:20→17:01)
[2018-10-01] MEDS: NICOTINE 21 MG/24 HOURS TOPICAL PATCH TD SCH (10:22)
[2018-10-01] MEDS: PRENATAL VITAMINS W/ FOLIC ACID TABLET (FP) PO SCH (10:22)
[2018-10-01] MEDS: TOLNAFTATE 1% CREAM 15 GM TUBE TP SCH ×2 (10:22→22:36)
--- NOTE | 2018-10-01 15:14 | PN ---
S CIWA - CIWA Score Nausea/Vomitin-No Nausea/No Vomiting Muscle Tremors: None Anxiety: 2 Agitation: 0-Normal Activity Paroxysmal Sweats: No Perspiration Orientation: 0-Oriented Tacttile Disturbances: 2-Mild Itch/Numbness/Burn Auditory Disturbances: 1-Very Mild Visual Disturbances: 3-Moderate Sensitivity Headache: 3-Moderate CIWA-Ar Total Score: 11 BHS Progress Note (SOAP) Subjective: Body Aches, H/A, Fatigue. Objective: PATIENT A & O X 3, OBSERVED AMBULATING ON UNIT. IN NO ACUTE DISTRESS. 10/01/18 15:14 Vital Signs Temperature 97.9 F 10/01/18 13:14 Pulse Rate 91 H 10/01/18 13:14 Respiratory Rate 18 10/01/18 13:14 Blood Pressure 128/78 10/01/18 13:14 O2 Sat by Pulse Oximetry (%) Laboratory Tests 09/30/18 09/30/18 09/30/18 07:00 07:00 07:00 WBC 6.0 RBC 4.39 Hgb 12.9 Hct 39.3 MCV 89.6 MCH 29.5 MCHC 32.9 RDW 13.9 Plt Count 196 MPV 9.0 Sodium 140 Potassium 4.0 Chloride 106 Carbon Dioxide 26 Anion Gap 8 BUN 16 Creatinine 1.0 Creat Clearance w eGFR > 60 Random Glucose 85 Calcium 9.1 Total Bilirubin 0.3 AST 13 L ALT 21 Alkaline Phosphatase 59 Total Protein 6.0 L Albumin 3.5 Valproic Acid 5.3 L RPR Titer 09/30/18 07:00 WBC RBC Hgb Hct MCV MCH MCHC RDW Plt Count MPV Sodium Potassium Chloride Carbon Dioxide Anion Gap BUN Creatinine Creat Clearance w eGFR Random Glucose Calcium Total Bilirubin AST ALT Alkaline Phosphatase Total Protein Albumin Valproic Acid RPR Titer Nonreactive LABS NOTED. Assessment: 10/01/18 15:15 WITHDRAWAL SYMPTOMS. Plan: CONTINUE DETOX.
[2018-10-01] MEDS: QUEtiapine FUMARATE 50 MG TABLET PO SCH (22:34)
[2018-10-01] MEDS: chlordiazePOXIDE 5 MG CAPSULE PO SCH (22:34)
[2018-10-01] MEDS: THIAMINE HCL 100 MG TABLET (FP) PO SCH (22:35)
[2018-10-02] MEDS: chlordiazePOXIDE 5 MG CAPSULE PO SCH ×2 (06:07→10:10)
[2018-10-02 09:35] VITALS: BP 116/68; PULSE 87; TEMP 98.7
[2018-10-02] MEDS: PRENATAL VITAMINS W/ FOLIC ACID TABLET (FP) PO SCH (10:10)
[2018-10-02] MEDS: NICOTINE 21 MG/24 HOURS TOPICAL PATCH TD SCH (10:10)
[2018-10-02] MEDS: TOLNAFTATE 1% CREAM 15 GM TUBE TP SCH (10:12)
--- NOTE | 2018-10-02 17:03 | PN ---
S Progress Note (SOAP) Subjective: Patient denies current Withdrawal / Detox symptoms and reports that he feels well overall. Objective: PATIENT A & O X 3, OBSERVED AMBULATING ON UNIT. IN NO ACUTE DISTRESS. 10/02/18 17:01 Vital Signs Temperature 98.7 F 10/02/18 09:34 Pulse Rate 87 10/02/18 09:34 Respiratory Rate 18 10/02/18 09:34 Blood Pressure 116/68 10/02/18 09:34 O2 Sat by Pulse Oximetry (%) Laboratory Tests 09/30/18 09/30/18 09/30/18 07:00 07:00 07:00 WBC 6.0 RBC 4.39 Hgb 12.9 Hct 39.3 MCV 89.6 MCH 29.5 MCHC 32.9 RDW 13.9 Plt Count 196 MPV 9.0 Sodium 140 Potassium 4.0 Chloride 106 Carbon Dioxide 26 Anion Gap 8 BUN 16 Creatinine 1.0 Creat Clearance w eGFR > 60 Random Glucose 85 Calcium 9.1 Total Bilirubin 0.3 AST 13 L ALT 21 Alkaline Phosphatase 59 Total Protein 6.0 L Albumin 3.5 Valproic Acid 5.3 L RPR Titer 09/30/18 07:00 WBC RBC Hgb Hct MCV MCH MCHC RDW Plt Count MPV Sodium Potassium Chloride Carbon Dioxide Anion Gap BUN Creatinine Creat Clearance w eGFR Random Glucose Calcium Total Bilirubin AST ALT Alkaline Phosphatase Total Protein Albumin Valproic Acid RPR Titer Nonreactive LABS NOTED. Assessment: 10/02/18 17:01 COMPLETION OF DETOX REGIMEN. Plan: REHAB BED IS CURRENTLY AVAILABLE AT [facility] ([place], [place]) AND SINCE PATIENT DENIES CURRENT WITHDRAWAL / DETOX SYMPTOMS AND REPORTS THAT HE FEELS WELL OVERALL, AT PATIENT'S REQUEST, HE WAS GRANTED AN EARLY DISCHARGE FROM DETOX UNIT TO GO ON TO [facility] FOR AFTERCARE.
--- NOTE | 2018-10-02 17:08 | DS ---
[facility] Detox Discharge Summary Admission Date: 09/29/18 Discharge Date: 10/02/18 - History Present History: Alcohol Dependence, Cocaine Dependence, Opioid Dependence Additional Comments: PATIENT DENIES CURRENT WITHDRAWAL / DETOX SYMPTOMS AND REPORTS THAT HE FEELS WELL OVERALL AT TIME OF DISCHARGE FROM DETOX UNIT. PATIENT GOING TO [facility] ([place], [place]) FOR AFTERCARE. PATIENT WAS DISCHARGED FROM DETOX UNIT IN STABLE MEDICAL CONDITION. Pertinent Past History: History of Anemia, History of G.E.R.D., Nicotine Dependence, History Of Cluster Headaches, History of Bipolar Disorder, Tinea Pedis, History of Hypertension, History of Dyslipidemia. - Physical Exam Results Vital Signs: Vital Signs Temperature 98.7 F 10/02/18 09:34 Pulse Rate 87 10/02/18 09:34 Respiratory Rate 18 10/02/18 09:34 Blood Pressure 116/68 10/02/18 09:34 O2 Sat by Pulse Oximetry (%) Pertinent Admission Physical Exam Findings: WITHDRAWAL SYMPTOMS. Laboratory Tests 09/30/18 09/30/18 09/30/18 07:00 07:00 07:00 WBC 6.0 RBC 4.39 Hgb 12.9 Hct 39.3 MCV 89.6 MCH 29.5 MCHC 32.9 RDW 13.9 Plt Count 196 MPV 9.0 Sodium 140 Potassium 4.0 Chloride 106 Carbon Dioxide 26 Anion Gap 8 BUN 16 Creatinine 1.0 Creat Clearance w eGFR > 60 Random Glucose 85 Calcium 9.1 Total Bilirubin 0.3 AST 13 L ALT 21 Alkaline Phosphatase 59 Total Protein 6.0 L Albumin 3.5 Valproic Acid 5.3 L RPR Titer 09/30/18 07:00 WBC RBC Hgb Hct MCV MCH MCHC RDW Plt Count MPV Sodium Potassium Chloride Carbon Dioxide Anion Gap BUN Creatinine Creat Clearance w eGFR Random Glucose Calcium Total Bilirubin AST ALT Alkaline Phosphatase Total Protein Albumin Valproic Acid RPR Titer Nonreactive LABS NOTED. - Treatment Hospital Course: Detox Protocol Followed, Detoxed Safely, Responded well, Discharged Condition Good, Rehab Referral Accepted Patient has Accepted a Rehab Referral to: [facility] ([place], [place]). - Medication Discharge Medications: Ambulatory Orders Quetiapine Fumarate [Seroquel] 100 mg PO HS #30 tablet 10/31/17 Divalproex [Depakote -] 500 mg PO BID #60 tablet.ec 11/12/17 - Diagnosis (1) Alcohol dependence with uncomplicated withdrawal Status: Acute (2) Cocaine use disorder, moderate, in early remission Status: Acute (3) Opioid use disorder, moderate, in early remission, dependence Status: Acute (4) Nicotine dependence Status: Chronic Qualifiers: Nicotine product type: cigarettes Substance use status: in withdrawal Qualified Code(s): F17.213 - Nicotine dependence, cigarettes, with withdrawal (5) Tinea pedis Status: Chronic Qualifiers: Laterality: bilateral Qualified Code(s): B35.3 - Tinea pedis (6) Substance-induced sleep disorder Status: Acute (7) Bipolar disorder Status: Chronic Qualifiers: Active/Remission status: remission status unspecified Qualified Code(s): F31.9 - Bipolar disorder, unspecified (8) Dyslipidemia Status: Chronic (9) GERD (gastroesophageal reflux disease) Status: Chronic Qualifiers: Esophagitis presence: esophagitis presence not specified Qualified Code(s) : K21.9 - Gastro-esophageal reflux disease without esophagitis (10) Hypertension Status: Chronic Qualifiers: Hypertension type: other secondary hypertension Qualified Code(s): I15.8 - Other secondary hypertension (11) History of anemia Status: Resolved - AMA Did Patient Leave Against Medical Advice: No
[2018-10-02] MEDS ORDERED: chlordiazePOXIDE HCL 10 MG CAPSULE PO SCH (23:00)
== END 2018-10-02 11:06 | disposition home or self-care (01) | DRG 773 ==
LOC: YASAS 13:27 → Y6N 19:21
PROVIDERS: ADMIT Surgery; ATTEND Surgery
PROC: HZ2ZZZZ Detoxification Services for Substance Abuse Treatment (ICD-10-PCS; principal; 2018-09-29)
DX: F10.230 Alcohol dependence with withdrawal, uncomplicated (principal); F11.21 Opioid dependence, in remission; F14.21 Cocaine dependence, in remission; F17.213 Nicotine dependence, cigarettes, with withdrawal; F31.9 Bipolar disorder, unspecified; F19.282 Other psychoactive substance dependence with psychoactive substance-induced sleep disorder; I10 Essential (primary) hypertension; E78.5 Hyperlipidemia, unspecified; K21.9 Gastro-esophageal reflux disease without esophagitis; B35.3 Tinea pedis
CPT/HCPCS: 36415; 80053; 80164; 85027; 86593

== ENCOUNTER 2020-09-05 11:57 | Inpatient (IN) | payer OTHER ==
[2020-09-05 12:30] VITALS: BMI 26.1
[2020-09-05] MEDS ORDERED: ACETAMINOPHEN 325 MG TABLET (FP) PO PRN (13:08)
[2020-09-05] MEDS ORDERED: MENTHOL/PHENOL 1 EACH UD MM PRN (13:08)
[2020-09-05] MEDS ORDERED: NICOTINE POLACRILEX 2 MG GUM BUC PRN (13:08)
[2020-09-05] MEDS ORDERED: MAGNESIUM CITRATE 300 ML BOTTLE PO PRN (13:08)
[2020-09-05] MEDS ORDERED: MAGNESIUM HYDROX 2400MG/30ML ORAL SUSPENSION 30 ML CUP PO PRN (13:08)
[2020-09-05] MEDS ORDERED: cloNIDine HCL 0.1 MG TABLET PO PRN (13:08)
[2020-09-05] MEDS ORDERED: BISMUTH SUBSALICYLATE 524 MG/30 ML UD PO PRN (13:08)
[2020-09-05] MEDS ORDERED: chlordiazePOXIDE HCL 25 MG CAPSULE PO PRN (13:08)
[2020-09-05] MEDS ORDERED: ONDANSETRON *ODT* 4 MG TABLET SL PRN (13:08)
[2020-09-05] MEDS ORDERED: MAG HYDROX/AL HYDROX/SIMETH 30 ML UNIT-DOSE CUP PO PRN (13:08)
[2020-09-05] MEDS ORDERED: METHADONE HCL 10 MG TABLET (FOR DETOX USE ONLY) PO ONE (13:30)
[2020-09-05] MEDS: ACETAMINOPHEN 325 MG TABLET (FP) PO PRN (14:28)
[2020-09-05] MEDS: hydrOXYzine PAMOATE 25 MG CAPSULE (FP) PO SCH ×3 (14:33→22:04)
[2020-09-05] MEDS ORDERED: COLLOIDAL OATMEAL 1 BAR EACH TP PRN (15:58)
[2020-09-05] MEDS: chlordiazePOXIDE HCL 25 MG CAPSULE PO SCH ×2 (17:38→22:05)
[2020-09-05] MEDS: THIAMINE HCL 100 MG TABLET (FP) PO SCH (22:04)
[2020-09-05] MEDS: MELATONIN 5 MG TABLETS PO SCH (22:04)
[2020-09-06] MEDS: hydrOXYzine PAMOATE 25 MG CAPSULE (FP) PO SCH ×2 (05:43→10:03)
[2020-09-06] MEDS: chlordiazePOXIDE HCL 25 MG CAPSULE PO SCH ×4 (05:43→22:19)
[2020-09-06] MEDS ORDERED: METHADONE HCL 5 MG TABLET (FOR DETOX USE ONLY) ONE (09:10)
[2020-09-06] MEDS ORDERED: METHADONE HCL 10 MG TABLET (FOR DETOX USE ONLY) ONE (09:10)
[2020-09-06] MEDS ORDERED: METHADONE (DETOX) 20 MG, METHADONE (DETOX) 5 MG PO ONE (10:00)
[2020-09-06] MEDS: PRENATAL VITAMINS W/ FOLIC ACID TABLET (FP) PO SCH (10:02)
[2020-09-06 11:31] LABS: HEMATOCRIT 38.1 % (35.4-49); HEMOGLOBIN 12.7 GM/dL (11.7-16.9); MCH 29.6 pg (25.7-33.7); MCHC 33.2 g/dl (32.0-35.9); MEAN CELL VOLUME 89.1 fl (80-96); MEAN PLT VOLUME 8.8 fl (7.5-11.1); PLATELET COUNT 190 K/MM3 (134-434); RBC 4.28 M/mm3 (4.00-5.60); RDW 13.8 % (11.9-15.9); WHITE BLOOD COUNT 7.5 K/mm3 (4.0-10.0)
[2020-09-06 11:43] LABS: POTASSIUM 3.7 mmol/L (3.5-5.1)
[2020-09-06 11:50] LABS: CREATININE 1.2 mg/dL (0.55-1.3)
[2020-09-06 11:52] LABS: ALBUMIN 3.7 g/dl (3.4-5.0); BLOOD UREA NITROGEN 15.3 mg/dL (7-18)
[2020-09-06 11:53] LABS: BILIRUBIN,TOTAL 0.2 mg/dL (0.2-1); TOT PROT 6.5 g/dl (6.4-8.2)
[2020-09-06] MEDS: METHOCARBAMOL 500 MG TABLET PO PRN (17:08)
[2020-09-06] MEDS: IBUPROFEN 400 MG TABLET (FP) PO PRN (20:22)
[2020-09-06] MEDS ORDERED: TRIMETHOBENZAMIDE HCL 200MG/2ML INJ IM ONE (21:16)
[2020-09-06] MEDS: THIAMINE HCL 100 MG TABLET (FP) PO SCH (22:19)
[2020-09-06] MEDS: DIVALPROEX SODIUM 500 MG TABLET E.C. PO SCH (22:19)
[2020-09-06] MEDS: hydrOXYzine PAMOATE 25 MG CAPSULE (FP) PO PRN (22:20)
[2020-09-06] MEDS: MELATONIN 5 MG TABLETS PO SCH (22:20)
[2020-09-06] MEDS: QUEtiapine FUMARATE 100 MG TABLET (FP) PO SCH (22:20)
[2020-09-07] MEDS: chlordiazePOXIDE HCL 25 MG CAPSULE PO SCH ×4 (06:00→22:29)
[2020-09-07] MEDS: IBUPROFEN 400 MG TABLET (FP) PO PRN ×2 (08:54→22:31)
[2020-09-07] MEDS ORDERED: METHADONE HCL 10 MG TABLET (FOR DETOX USE ONLY) PO ONE (10:00)
[2020-09-07] MEDS: PRENATAL VITAMINS W/ FOLIC ACID TABLET (FP) PO SCH (10:04)
[2020-09-07] MEDS: DIVALPROEX SODIUM 500 MG TABLET E.C. PO SCH ×2 (10:06→22:32)
[2020-09-07] MEDS ORDERED: MINERAL OIL/PETROLAT/WATER TOPICAL CREAM 113 GM JAR TP PRN (14:23)
[2020-09-07] MEDS ORDERED: P-EPHED 60MG/TRIPROLIDI 2.5MG TABLET PO PRN (15:06)
[2020-09-07] MEDS: THIAMINE HCL 100 MG TABLET (FP) PO SCH (22:29)
[2020-09-07] MEDS: QUEtiapine FUMARATE 100 MG TABLET (FP) PO SCH (22:29)
[2020-09-07] MEDS: hydrOXYzine PAMOATE 25 MG CAPSULE (FP) PO PRN (22:29)
[2020-09-07] MEDS: MELATONIN 5 MG TABLETS PO SCH (22:30)
[2020-09-08] MEDS ORDERED: chlordiazePOXIDE HCL 10 MG CAPSULE PO PRN
[2020-09-08] MEDS: chlordiazePOXIDE HCL 10 MG CAPSULE PO SCH ×4 (05:33→22:20)
[2020-09-08] MEDS ORDERED: METHADONE HCL 10 MG TABLET (FOR DETOX USE ONLY) ONE (08:49)
[2020-09-08] MEDS ORDERED: METHADONE HCL 5 MG TABLET (FOR DETOX USE ONLY) ONE (08:50)
[2020-09-08] MEDS ORDERED: METHADONE (DETOX) 10 MG, METHADONE (DETOX) 5 MG PO ONE (10:00)
[2020-09-08] MEDS: PRENATAL VITAMINS W/ FOLIC ACID TABLET (FP) PO SCH (10:20)
[2020-09-08] MEDS: DIVALPROEX SODIUM 500 MG TABLET E.C. PO SCH ×2 (10:20→22:20)
[2020-09-08] MEDS: THIAMINE HCL 100 MG TABLET (FP) PO SCH (22:19)
[2020-09-08] MEDS: QUEtiapine FUMARATE 100 MG TABLET (FP) PO SCH (22:19)
[2020-09-08] MEDS: MELATONIN 5 MG TABLETS PO SCH (22:20)
[2020-09-09] MEDS: chlordiazePOXIDE HCL 10 MG CAPSULE PO SCH ×2 (06:10→17:09)
[2020-09-09] MEDS ORDERED: METHADONE HCL 10 MG TABLET (FOR DETOX USE ONLY) PO ONE (10:00)
[2020-09-09] MEDS: DIVALPROEX SODIUM 500 MG TABLET E.C. PO SCH ×2 (10:10→22:14)
[2020-09-09] MEDS: PRENATAL VITAMINS W/ FOLIC ACID TABLET (FP) PO SCH (10:11)
[2020-09-09] MEDS: LIDOCAINE 5% TOPICAL PATCH TP SCH (12:42)
[2020-09-09] MEDS: NAPROXEN 500 MG TABLET PO SCH ×2 (12:42→22:14)
[2020-09-09] MEDS: METHOCARBAMOL 500 MG TABLET PO PRN (17:09)
[2020-09-09] MEDS ORDERED: LIDOCAINE PATCH REMOVAL MC SCH (22:00)
[2020-09-09] MEDS: hydrOXYzine PAMOATE 25 MG CAPSULE (FP) PO PRN (22:14)
[2020-09-09] MEDS: QUEtiapine FUMARATE 100 MG TABLET (FP) PO SCH (22:14)
[2020-09-09] MEDS: THIAMINE HCL 100 MG TABLET (FP) PO SCH (22:15)
[2020-09-09] MEDS: MELATONIN 5 MG TABLETS PO SCH (22:15)
[2020-09-10] MEDS ORDERED: chlordiazePOXIDE HCL 10 MG CAPSULE PO ONE (05:00)
[2020-09-10] MEDS ORDERED: METHADONE HCL 5 MG TABLET (FOR DETOX USE ONLY) PO ONE (06:00)
[2020-09-10] MEDS: PRENATAL VITAMINS W/ FOLIC ACID TABLET (FP) PO SCH (10:13)
[2020-09-10] MEDS: NAPROXEN 500 MG TABLET PO SCH (10:14)
[2020-09-10] MEDS: DIVALPROEX SODIUM 500 MG TABLET E.C. PO SCH (10:14)
[2020-09-10] MEDS: LIDOCAINE 5% TOPICAL PATCH TP SCH (10:14)
[2020-09-10] MEDS: ACETAMINOPHEN 325 MG TABLET (FP) PO PRN (11:58)
[2020-09-10] MEDS: hydrOXYzine PAMOATE 25 MG CAPSULE (FP) PO PRN (11:58)
[2020-09-10 13:36] VITALS: BP 128/85; PULSE 79; TEMP 98.4
== END 2020-09-10 14:18 | disposition other institution (70) | DRG 773 ==
LOC: YASAS 11:57 → Y3N 12:54
PROVIDERS: ADMIT Allergy & Immunology; ATTEND Allergy & Immunology
PROC: HZ2ZZZZ Detoxification Services for Substance Abuse Treatment (ICD-10-PCS; principal; 2020-09-05)
DX: F11.23 Opioid dependence with withdrawal (principal); F10.230 Alcohol dependence with withdrawal, uncomplicated; F14.20 Cocaine dependence, uncomplicated; F17.210 Nicotine dependence, cigarettes, uncomplicated; F19.24 Other psychoactive substance dependence with psychoactive substance-induced mood disorder; F31.9 Bipolar disorder, unspecified; F20.9 Schizophrenia, unspecified; F90.9 Attention-deficit hyperactivity disorder, unspecified type; E78.5 Hyperlipidemia, unspecified; I15.8 Other secondary hypertension; K21.9 Gastro-esophageal reflux disease without esophagitis; M54.5 Low back pain; B36.0 Pityriasis versicolor; Z87.81 Personal history of (healed) traumatic fracture; Z91.013 Allergy to seafood; Z91.19 Patient's noncompliance with other medical treatment and regimen
CPT/HCPCS: 36415; 80053; 80164; 85027; 86780; 87389; 93005; 93010; C9803; J0735; U0003

== ENCOUNTER 2020-09-10 14:20 | Inpatient (IN) | payer OTHER ==
[2020-09-10 15:06] VITALS: BP 122/94; PULSE 95; TEMP 97.3
== END 2020-09-10 14:48 | disposition left against medical advice (07) | DRG 770 ==
LOC: YASAS 14:20 → Y3W 14:22
PROVIDERS: ADMIT Allergy & Immunology; ATTEND Allergy & Immunology
PROC: HZ42ZZZ Group Counseling for Substance Abuse Treatment, Cognitive-Behavioral (ICD-10-PCS; principal; 2020-09-10)
DX: F11.20 Opioid dependence, uncomplicated (principal); F10.20 Alcohol dependence, uncomplicated

== ENCOUNTER 2020-12-12 09:41 | Inpatient (IN) | payer OTHER ==
[2020-12-12 10:54] VITALS: BMI 24.3
[2020-12-12] MEDS ORDERED: METHOCARBAMOL 500 MG TABLET PO PRN (10:56)
[2020-12-12] MEDS ORDERED: MAGNESIUM CITRATE 300 ML BOTTLE PO PRN (10:56)
[2020-12-12] MEDS ORDERED: ACETAMINOPHEN 325 MG TABLET (FP) PO PRN (10:56)
[2020-12-12] MEDS ORDERED: chlordiazePOXIDE HCL 25 MG CAPSULE PO PRN (10:56)
[2020-12-12] MEDS ORDERED: BISMUTH SUBSALICYLATE 524 MG/30 ML UD PO PRN (10:56)
[2020-12-12] MEDS ORDERED: IBUPROFEN 400 MG TABLET (FP) PO PRN (10:56)
[2020-12-12] MEDS ORDERED: NICOTINE POLACRILEX 2 MG GUM BUC PRN (10:56)
[2020-12-12] MEDS ORDERED: MAGNESIUM HYDROX 2400MG/30ML ORAL SUSPENSION 30 ML CUP PO PRN (10:56)
[2020-12-12] MEDS ORDERED: AMMONIUM LACTATE 12% LOTION 225 GM BOTTLE TP PRN (12:03)
[2020-12-12] MEDS: chlordiazePOXIDE HCL 25 MG CAPSULE PO SCH ×3 (12:44→22:09)
[2020-12-12] MEDS: ONDANSETRON *ODT* 4 MG TABLET SL PRN (13:00)
[2020-12-12] MEDS: PRENATAL VITAMINS W/ FOLIC ACID TABLET (FP) PO SCH (13:04)
[2020-12-12 14:41] LABS: HEMATOCRIT 40.9 % (35.4-49); HEMOGLOBIN 13.5 GM/dL (11.7-16.9); MCH 29.6 pg (25.7-33.7); MEAN CELL VOLUME 89.8 fl (80-96); PLATELET COUNT 229 K/MM3 (134-434); RBC 4.56 M/mm3 (4.00-5.60); RDW 13.4 % (11.9-15.9); WHITE BLOOD COUNT 6.9 K/mm3 (4.0-10.0)
[2020-12-12 14:48] LABS: ALBUMIN 3.8 g/dl (3.4-5.0); BLOOD UREA NITROGEN 15.4 mg/dL (7-18)
[2020-12-12 14:49] LABS: CALCIUM 8.5 mg/dL (8.5-10.1)
[2020-12-12 14:51] LABS: CREATININE 1.2 mg/dL (0.55-1.3)
[2020-12-12 14:53] LABS: BILIRUBIN,TOTAL 0.2 mg/dL (0.2-1); TOT PROT 6.9 g/dl (6.4-8.2)
[2020-12-12] MEDS: hydrOXYzine PAMOATE 25 MG CAPSULE (FP) PO SCH ×3 (15:48→22:11)
[2020-12-12] MEDS: ACETAMINOPHEN 325 MG TABLET (FP) PO PRN (19:38)
[2020-12-12] MEDS: THIAMINE HCL 100 MG TABLET (FP) PO SCH (22:08)
[2020-12-12] MEDS: DIVALPROEX SODIUM 500 MG TABLET E.C. PO SCH (22:09)
[2020-12-12] MEDS: QUEtiapine FUMARATE 100 MG TABLET (FP) PO SCH (22:09)
[2020-12-12] MEDS: MELATONIN 5 MG TABLETS PO SCH (22:11)
[2020-12-13] MEDS: hydrOXYzine PAMOATE 25 MG CAPSULE (FP) PO SCH ×5 (05:52→22:30)
[2020-12-13] MEDS: chlordiazePOXIDE HCL 25 MG CAPSULE PO SCH ×4 (05:52→22:29)
[2020-12-13] MEDS: DIVALPROEX SODIUM 500 MG TABLET E.C. PO SCH ×2 (10:33→22:29)
[2020-12-13] MEDS: PRENATAL VITAMINS W/ FOLIC ACID TABLET (FP) PO SCH (10:33)
[2020-12-13] MEDS ORDERED: COLLOIDAL OATMEAL 1 BAR EACH TP PRN (11:41)
[2020-12-13] MEDS: MENTHOL/PHENOL 1 EACH UD MM PRN (13:01)
[2020-12-13] MEDS: AMMONIUM LACTATE 12% LOTION 225 GM BOTTLE TP SCH ×2 (13:02→22:31)
[2020-12-13 14:04] LABS: HIV INTERPRETATION NEGATIVE (NEGATIVE)
[2020-12-13] MEDS: MAG HYDROX/AL HYDROX/SIMETH 30 ML UNIT-DOSE CUP PO PRN ×2 (16:31→22:34)
[2020-12-13] MEDS: ONDANSETRON *ODT* 4 MG TABLET SL PRN (18:02)
[2020-12-13] MEDS: QUEtiapine FUMARATE 100 MG TABLET (FP) PO SCH (22:29)
[2020-12-13] MEDS: THIAMINE HCL 100 MG TABLET (FP) PO SCH (22:29)
[2020-12-13] MEDS: MELATONIN 5 MG TABLETS PO SCH (22:33)
[2020-12-14] MEDS: hydrOXYzine PAMOATE 25 MG CAPSULE (FP) PO SCH ×5 (05:58→22:08)
[2020-12-14] MEDS: chlordiazePOXIDE HCL 25 MG CAPSULE PO SCH ×5 (05:59→23:33)
[2020-12-14] MEDS: DIVALPROEX SODIUM 500 MG TABLET E.C. PO SCH ×2 (10:32→22:07)
[2020-12-14] MEDS: PRENATAL VITAMINS W/ FOLIC ACID TABLET (FP) PO SCH (10:32)
[2020-12-14] MEDS: AMMONIUM LACTATE 12% LOTION 225 GM BOTTLE TP SCH ×2 (10:33→22:08)
[2020-12-14] MEDS: MAG HYDROX/AL HYDROX/SIMETH 30 ML UNIT-DOSE CUP PO PRN (14:14)
[2020-12-14] MEDS: MENTHOL/PHENOL 1 EACH UD MM PRN ×2 (14:17→18:49)
[2020-12-14] MEDS: ACETAMINOPHEN 325 MG TABLET (FP) PO PRN (18:49)
[2020-12-14] MEDS: QUEtiapine FUMARATE 100 MG TABLET (FP) PO SCH (22:07)
[2020-12-14] MEDS: THIAMINE HCL 100 MG TABLET (FP) PO SCH (22:08)
[2020-12-14] MEDS: MELATONIN 5 MG TABLETS PO SCH (22:08)
[2020-12-14] MEDS: ONDANSETRON *ODT* 4 MG TABLET SL PRN (22:16)
[2020-12-15] MEDS ORDERED: chlordiazePOXIDE HCL 10 MG CAPSULE PO PRN
[2020-12-15] MEDS: hydrOXYzine PAMOATE 25 MG CAPSULE (FP) PO SCH ×5 (05:40→22:06)
[2020-12-15] MEDS: chlordiazePOXIDE HCL 10 MG CAPSULE PO SCH ×4 (05:40→22:05)
[2020-12-15] MEDS: DIVALPROEX SODIUM 500 MG TABLET E.C. PO SCH ×2 (10:13→22:05)
[2020-12-15] MEDS: AMMONIUM LACTATE 12% LOTION 225 GM BOTTLE TP SCH ×2 (10:14→22:06)
[2020-12-15] MEDS: PRENATAL VITAMINS W/ FOLIC ACID TABLET (FP) PO SCH (10:14)
[2020-12-15] MEDS: MAG HYDROX/AL HYDROX/SIMETH 30 ML UNIT-DOSE CUP PO PRN (10:18)
[2020-12-15] MEDS: MENTHOL/PHENOL 1 EACH UD MM PRN (20:07)
[2020-12-15] MEDS: THIAMINE HCL 100 MG TABLET (FP) PO SCH (22:05)
[2020-12-15] MEDS: QUEtiapine FUMARATE 100 MG TABLET (FP) PO SCH (22:05)
[2020-12-15] MEDS: MELATONIN 5 MG TABLETS PO SCH (22:47)
[2020-12-16] MEDS: chlordiazePOXIDE HCL 10 MG CAPSULE PO SCH ×2 (05:45→18:19)
[2020-12-16] MEDS: hydrOXYzine PAMOATE 25 MG CAPSULE (FP) PO SCH ×5 (05:46→22:32)
[2020-12-16 08:06] LABS: SARS-CoV-2 NAA Not Detected (Not Detected)
[2020-12-16] MEDS: PRENATAL VITAMINS W/ FOLIC ACID TABLET (FP) PO SCH (10:32)
[2020-12-16] MEDS: DIVALPROEX SODIUM 500 MG TABLET E.C. PO SCH ×2 (10:32→22:32)
[2020-12-16] MEDS: AMMONIUM LACTATE 12% LOTION 225 GM BOTTLE TP SCH ×2 (10:32→22:33)
[2020-12-16] MEDS: MENTHOL/PHENOL 1 EACH UD MM PRN (18:21)
[2020-12-16] MEDS: MELATONIN 5 MG TABLETS PO SCH (22:32)
[2020-12-16] MEDS: THIAMINE HCL 100 MG TABLET (FP) PO SCH (22:32)
[2020-12-16] MEDS: QUEtiapine FUMARATE 100 MG TABLET (FP) PO SCH (22:34)
[2020-12-17] MEDS ORDERED: chlordiazePOXIDE HCL 10 MG CAPSULE PO ONE (05:00)
[2020-12-17] MEDS: hydrOXYzine PAMOATE 25 MG CAPSULE (FP) PO SCH ×2 (05:41→09:22)
[2020-12-17 06:03] VITALS: PULSE 73; TEMP 97.8
[2020-12-17] MEDS: DIVALPROEX SODIUM 500 MG TABLET E.C. PO SCH (09:22)
[2020-12-17] MEDS: PRENATAL VITAMINS W/ FOLIC ACID TABLET (FP) PO SCH (09:22)
[2020-12-17] MEDS: AMMONIUM LACTATE 12% LOTION 225 GM BOTTLE TP SCH (09:22)
[2020-12-17 09:57] VITALS: BP 109/63
== END 2020-12-17 11:05 | disposition other institution (70) | DRG 773 ==
LOC: YASAS 09:41 → Y6N 11:44
PROVIDERS: ADMIT Allergy & Immunology; ATTEND Allergy & Immunology
PROC: HZ2ZZZZ Detoxification Services for Substance Abuse Treatment (ICD-10-PCS; principal; 2020-12-12)
DX: F10.230 Alcohol dependence with withdrawal, uncomplicated (principal); F11.20 Opioid dependence, uncomplicated; F14.20 Cocaine dependence, uncomplicated; F17.210 Nicotine dependence, cigarettes, uncomplicated; F19.282 Other psychoactive substance dependence with psychoactive substance-induced sleep disorder; F19.24 Other psychoactive substance dependence with psychoactive substance-induced mood disorder; F31.9 Bipolar disorder, unspecified; F20.9 Schizophrenia, unspecified; I10 Essential (primary) hypertension; K21.9 Gastro-esophageal reflux disease without esophagitis; H93.19 Tinnitus, unspecified ear; B36.0 Pityriasis versicolor; Z98.890 Other specified postprocedural states; Z91.018 Allergy to other foods
CPT/HCPCS: 36415; 80053; 85027; 86780; 87389; 93005; 93010; C9803; Q0162; U0003; U0005

== ENCOUNTER 2021-02-07 12:57 | Inpatient (IN) | payer OTHER ==
[2021-02-07 13:34] VITALS: BMI 24.0
[2021-02-07] MEDS ORDERED: ONDANSETRON *ODT* 4 MG TABLET SL PRN (14:54)
[2021-02-07] MEDS ORDERED: MAG HYDROX/AL HYDROX/SIMETH 30 ML UNIT-DOSE CUP PO PRN (14:54)
[2021-02-07] MEDS ORDERED: NICOTINE POLACRILEX 2 MG GUM BUC PRN (14:54)
[2021-02-07] MEDS ORDERED: MAGNESIUM HYDROX 2400MG/30ML ORAL SUSPENSION 30 ML CUP PO PRN (14:54)
[2021-02-07] MEDS ORDERED: MAGNESIUM CITRATE 300 ML BOTTLE PO PRN (14:54)
[2021-02-07] MEDS ORDERED: METHOCARBAMOL 500 MG TABLET PO PRN (14:54)
[2021-02-07] MEDS ORDERED: IBUPROFEN 400 MG TABLET (FP) PO PRN (14:54)
[2021-02-07] MEDS ORDERED: ACETAMINOPHEN 325 MG TABLET (FP) PO PRN ×2 (14:54)
[2021-02-07] MEDS ORDERED: BISMUTH SUBSALICYLATE 524 MG/30 ML PO PRN (14:54)
[2021-02-07] MEDS: MENTHOL/PHENOL 1 EACH UD MM PRN ×2 (17:54→22:12)
[2021-02-07] MEDS: hydrOXYzine PAMOATE 25 MG CAPSULE (FP) PO SCH ×2 (17:54→22:10)
[2021-02-07] MEDS ORDERED: THIAMINE HCL 100 MG TABLET (FP) PO SCH (22:00)
[2021-02-07] MEDS ORDERED: MELATONIN 5 MG TABLETS PO SCH (22:00)
[2021-02-07] MEDS ORDERED: QUEtiapine FUMARATE 100 MG TABLET (FP) PO SCH (22:00)
[2021-02-07] MEDS: DIVALPROEX SODIUM 500 MG TABLET E.C. PO SCH (22:09)
[2021-02-08] MEDS: hydrOXYzine PAMOATE 25 MG CAPSULE (FP) PO SCH ×3 (07:16→13:42)
[2021-02-08] MEDS ORDERED: PRENATAL VITAMINS W/ FOLIC ACID TABLET (FP) PO SCH (10:00)
[2021-02-08] MEDS: DIVALPROEX SODIUM 500 MG TABLET E.C. PO SCH (10:50)
[2021-02-08 11:28] LABS: HEMATOCRIT 38.8 % (35.4-49); HEMOGLOBIN 12.5 GM/dL (11.7-16.9); MCH 28.5 pg (25.7-33.7); MCHC 32.2 g/dl (32.0-35.9); MEAN CELL VOLUME 88.5 fl (80-96); MEAN PLT VOLUME 9.2 fl (7.5-11.1); PLATELET COUNT 248 10^3/uL (134-434); RBC 4.38 M/mm3 (4.00-5.60); RDW 13.6 % (11.9-15.9); WHITE BLOOD COUNT 13.1 K/mm3 (4.0-10.0)
[2021-02-08 11:53] LABS: ALBUMIN 3.7 g/dl (3.4-5.0); BLOOD UREA NITROGEN 11.8 mg/dL (7-18); CALCIUM 8.7 mg/dL (8.5-10.1)
[2021-02-08 11:56] LABS: CREATININE 1.2 mg/dL (0.55-1.3)
[2021-02-08 11:58] LABS: BILIRUBIN,TOTAL 0.5 mg/dL (0.2-1); TOT PROT 7.1 g/dl (6.4-8.2)
[2021-02-08 12:35] LABS: HIV INTERPRETATION NEGATIVE (NEGATIVE)
[2021-02-08 13:02] VITALS: BP 108/59; PULSE 89; TEMP 97.1
== END 2021-02-08 15:21 | disposition other institution (70) | DRG 774 ==
LOC: YASAS 12:57 → Y3N 15:34
PROVIDERS: ADMIT Allergy & Immunology; ATTEND Allergy & Immunology
PROC: HZ2ZZZZ Detoxification Services for Substance Abuse Treatment (ICD-10-PCS; principal; 2021-02-07)
DX: F10.230 Alcohol dependence with withdrawal, uncomplicated (principal); F14.20 Cocaine dependence, uncomplicated; F13.10 Sedative, hypnotic or anxiolytic abuse, uncomplicated; F12.10 Cannabis abuse, uncomplicated; F17.210 Nicotine dependence, cigarettes, uncomplicated; F31.9 Bipolar disorder, unspecified; F19.24 Other psychoactive substance dependence with psychoactive substance-induced mood disorder; K21.9 Gastro-esophageal reflux disease without esophagitis; G47.00 Insomnia, unspecified; Z91.14 Patient's other noncompliance with medication regimen; Z91.018 Allergy to other foods; Z56.0 Unemployment, unspecified
CPT/HCPCS: 36415; 80053; 80164; 85027; 86780; 87389; C9803; U0003; U0005

== ENCOUNTER 2021-02-08 11:13 | Inpatient (IN) | payer OTHER ==
[2021-02-08] MEDS ORDERED: MAGNESIUM CITRATE 300 ML BOTTLE PO PRN (18:27)
[2021-02-08] MEDS ORDERED: NICOTINE POLACRILEX 2 MG GUM BUC PRN (18:27)
[2021-02-08] MEDS ORDERED: guaiFENesin 200 MG/10 ML 10 ML UNIT-DOSE CUPS PO PRN (18:27)
[2021-02-08] MEDS ORDERED: MAGNESIUM HYDROX 2400MG/30ML ORAL SUSPENSION 30 ML CUP PO PRN (18:27)
[2021-02-08] MEDS ORDERED: LOPERAMIDE HCL 2 MG CAPSULE PO PRN (18:27)
[2021-02-08] MEDS ORDERED: IBUPROFEN 400 MG TABLET (FP) PO PRN (18:27)
[2021-02-08] MEDS ORDERED: NICOTINE 7 MG/24 HOURS TOPICAL PATCH TD SCH (18:30)
[2021-02-08] MEDS: NICOTINE 14 MG/24 HOURS TOPICAL PATCH TD SCH (19:28)
[2021-02-08] MEDS: PRENATAL VITAMINS W/ FOLIC ACID TABLET (FP) PO SCH (19:29)
[2021-02-08] MEDS: THIAMINE HCL 100 MG TABLET (FP) PO SCH (21:23)
[2021-02-08] MEDS: DIVALPROEX SODIUM 500 MG TABLET E.C. PO SCH (21:23)
[2021-02-08] MEDS: QUEtiapine FUMARATE 100 MG TABLET (FP) PO SCH (21:23)
[2021-02-08] MEDS: ACETAMINOPHEN 325 MG TABLET (FP) PO PRN (21:23)
[2021-02-08] MEDS: hydrOXYzine PAMOATE 25 MG CAPSULE (FP) PO SCH (21:24)
[2021-02-08] MEDS: MENTHOL/PHENOL 1 EACH UD MM PRN (21:25)
[2021-02-08] MEDS: MELATONIN 5 MG TABLETS PO SCH (22:57)
[2021-02-09] MEDS: hydrOXYzine PAMOATE 25 MG CAPSULE (FP) PO SCH ×5 (06:22→21:59)
[2021-02-09] MEDS: ACETAMINOPHEN 325 MG TABLET (FP) PO PRN (07:43)
[2021-02-09] MEDS: NICOTINE 14 MG/24 HOURS TOPICAL PATCH TD SCH (09:49)
[2021-02-09] MEDS: DIVALPROEX SODIUM 500 MG TABLET E.C. PO SCH ×2 (09:49→21:11)
[2021-02-09] MEDS: PRENATAL VITAMINS W/ FOLIC ACID TABLET (FP) PO SCH (09:49)
[2021-02-09] MEDS: MENTHOL/PHENOL 1 EACH UD MM PRN ×2 (09:50→14:42)
[2021-02-09] MEDS: COLLOIDAL OATMEAL 1 BAR EACH TP PRN (14:41)
[2021-02-09] MEDS: MAG HYDROX/AL HYDROX/SIMETH 30 ML UNIT-DOSE CUP PO PRN (17:46)
[2021-02-09] MEDS: THIAMINE HCL 100 MG TABLET (FP) PO SCH (21:11)
[2021-02-09] MEDS: MELATONIN 5 MG TABLETS PO SCH (21:11)
[2021-02-09] MEDS: QUEtiapine FUMARATE 100 MG TABLET (FP) PO SCH (21:11)
[2021-02-10] MEDS: hydrOXYzine PAMOATE 25 MG CAPSULE (FP) PO SCH ×2 (06:27→09:51)
[2021-02-10] MEDS: PRENATAL VITAMINS W/ FOLIC ACID TABLET (FP) PO SCH (09:50)
[2021-02-10] MEDS: DIVALPROEX SODIUM 500 MG TABLET E.C. PO SCH ×2 (09:50→21:12)
[2021-02-10] MEDS: NICOTINE 14 MG/24 HOURS TOPICAL PATCH TD SCH (09:51)
[2021-02-10] MEDS: ACETAMINOPHEN 325 MG TABLET (FP) PO PRN (15:21)
[2021-02-10] MEDS: QUEtiapine FUMARATE 100 MG TABLET (FP) PO SCH (21:12)
[2021-02-10] MEDS: MELATONIN 5 MG TABLETS PO SCH (21:13)
[2021-02-10] MEDS: THIAMINE HCL 100 MG TABLET (FP) PO SCH (21:13)
[2021-02-11] MEDS: PRENATAL VITAMINS W/ FOLIC ACID TABLET (FP) PO SCH (09:52)
[2021-02-11] MEDS: DIVALPROEX SODIUM 500 MG TABLET E.C. PO SCH ×2 (09:52→21:08)
[2021-02-11] MEDS: NICOTINE 14 MG/24 HOURS TOPICAL PATCH TD SCH (09:52)
[2021-02-11] MEDS: MENTHOL/PHENOL 1 EACH UD MM PRN (18:28)
[2021-02-11] MEDS: MAG HYDROX/AL HYDROX/SIMETH 30 ML UNIT-DOSE CUP PO PRN (18:29)
[2021-02-11] MEDS: P-EPHED 60MG/TRIPROLIDI 2.5MG TABLET PO PRN (19:07)
[2021-02-11] MEDS: hydrOXYzine PAMOATE 25 MG CAPSULE (FP) PO PRN (20:36)
[2021-02-11] MEDS: THIAMINE HCL 100 MG TABLET (FP) PO SCH (21:07)
[2021-02-11] MEDS: MELATONIN 5 MG TABLETS PO SCH (21:08)
[2021-02-11] MEDS: QUEtiapine FUMARATE 100 MG TABLET (FP) PO SCH (21:08)
[2021-02-12] MEDS: hydrOXYzine PAMOATE 25 MG CAPSULE (FP) PO PRN (06:18)
[2021-02-12] MEDS: P-EPHED 60MG/TRIPROLIDI 2.5MG TABLET PO PRN ×2 (06:18→15:46)
[2021-02-12] MEDS: NICOTINE 14 MG/24 HOURS TOPICAL PATCH TD SCH (09:32)
[2021-02-12] MEDS: DIVALPROEX SODIUM 500 MG TABLET E.C. PO SCH ×2 (09:32→21:18)
[2021-02-12] MEDS: PRENATAL VITAMINS W/ FOLIC ACID TABLET (FP) PO SCH (09:33)
[2021-02-12] MEDS: ACETAMINOPHEN 325 MG TABLET (FP) PO PRN (15:46)
[2021-02-12] MEDS: QUEtiapine FUMARATE 100 MG TABLET (FP) PO SCH (21:18)
[2021-02-12] MEDS: THIAMINE HCL 100 MG TABLET (FP) PO SCH (21:18)
[2021-02-12] MEDS: MELATONIN 5 MG TABLETS PO SCH (21:18)
[2021-02-13] MEDS: hydrOXYzine PAMOATE 25 MG CAPSULE (FP) PO PRN (06:27)
[2021-02-13] MEDS: P-EPHED 60MG/TRIPROLIDI 2.5MG TABLET PO PRN ×2 (06:27→21:15)
[2021-02-13] MEDS: PRENATAL VITAMINS W/ FOLIC ACID TABLET (FP) PO SCH (10:00)
[2021-02-13] MEDS: NICOTINE 14 MG/24 HOURS TOPICAL PATCH TD SCH (10:00)
[2021-02-13] MEDS: DIVALPROEX SODIUM 500 MG TABLET E.C. PO SCH ×2 (10:00→21:15)
[2021-02-13] MEDS: MAG HYDROX/AL HYDROX/SIMETH 30 ML UNIT-DOSE CUP PO PRN (17:37)
[2021-02-13] MEDS: MELATONIN 5 MG TABLETS PO SCH (21:15)
[2021-02-13] MEDS: QUEtiapine FUMARATE 100 MG TABLET (FP) PO SCH (21:15)
[2021-02-13] MEDS: THIAMINE HCL 100 MG TABLET (FP) PO SCH (21:15)
[2021-02-14] MEDS: MENTHOL/PHENOL 1 EACH UD MM PRN (08:03)
[2021-02-14] MEDS: P-EPHED 60MG/TRIPROLIDI 2.5MG TABLET PO PRN (08:03)
[2021-02-14] MEDS: DIVALPROEX SODIUM 500 MG TABLET E.C. PO SCH ×2 (09:52→21:14)
[2021-02-14] MEDS: PRENATAL VITAMINS W/ FOLIC ACID TABLET (FP) PO SCH (09:52)
[2021-02-14] MEDS: NICOTINE 14 MG/24 HOURS TOPICAL PATCH TD SCH (09:52)
[2021-02-14] MEDS: MELATONIN 5 MG TABLETS PO SCH (21:12)
[2021-02-14] MEDS: THIAMINE HCL 100 MG TABLET (FP) PO SCH (21:14)
[2021-02-14] MEDS: QUEtiapine FUMARATE 100 MG TABLET (FP) PO SCH (21:14)
[2021-02-15] MEDS: NICOTINE 14 MG/24 HOURS TOPICAL PATCH TD SCH (09:35)
[2021-02-15] MEDS: DIVALPROEX SODIUM 500 MG TABLET E.C. PO SCH ×2 (09:35→21:35)
[2021-02-15] MEDS: PRENATAL VITAMINS W/ FOLIC ACID TABLET (FP) PO SCH (09:35)
[2021-02-15] MEDS: THIAMINE HCL 100 MG TABLET (FP) PO SCH (21:35)
[2021-02-15] MEDS: MELATONIN 5 MG TABLETS PO SCH (21:35)
[2021-02-15] MEDS: QUEtiapine FUMARATE 100 MG TABLET (FP) PO SCH (21:35)
[2021-02-16] MEDS: NICOTINE 14 MG/24 HOURS TOPICAL PATCH TD SCH (09:49)
[2021-02-16] MEDS: DIVALPROEX SODIUM 500 MG TABLET E.C. PO SCH ×2 (09:49→21:17)
[2021-02-16] MEDS: PRENATAL VITAMINS W/ FOLIC ACID TABLET (FP) PO SCH (09:49)
[2021-02-16] MEDS ORDERED: PT OWN MED DRAWER 7, Y5N ONE (10:06)
[2021-02-16] MEDS: QUEtiapine FUMARATE 100 MG TABLET (FP) PO SCH (21:17)
[2021-02-16] MEDS: ACETAMINOPHEN 325 MG TABLET (FP) PO PRN (21:17)
[2021-02-16] MEDS: THIAMINE HCL 100 MG TABLET (FP) PO SCH (21:17)
[2021-02-16] MEDS: MELATONIN 5 MG TABLETS PO SCH (21:19)
[2021-02-17] MEDS ORDERED: PT OWN MED DRAWER 7, Y5N ONE ×3 (08:41→16:00)
[2021-02-17] MEDS: DIVALPROEX SODIUM 500 MG TABLET E.C. PO SCH ×2 (09:39→21:24)
[2021-02-17] MEDS: NICOTINE 14 MG/24 HOURS TOPICAL PATCH TD SCH (09:39)
[2021-02-17] MEDS: PRENATAL VITAMINS W/ FOLIC ACID TABLET (FP) PO SCH (09:39)
[2021-02-17] MEDS: QUEtiapine FUMARATE 100 MG TABLET (FP) PO SCH (21:24)
[2021-02-17] MEDS: THIAMINE HCL 100 MG TABLET (FP) PO SCH (21:24)
[2021-02-17] MEDS: MELATONIN 5 MG TABLETS PO SCH (21:25)
[2021-02-18] MEDS: DIVALPROEX SODIUM 500 MG TABLET E.C. PO SCH ×2 (09:33→21:15)
[2021-02-18] MEDS: PRENATAL VITAMINS W/ FOLIC ACID TABLET (FP) PO SCH (09:33)
[2021-02-18] MEDS: NICOTINE 14 MG/24 HOURS TOPICAL PATCH TD SCH (09:33)
[2021-02-18] MEDS: hydrOXYzine PAMOATE 25 MG CAPSULE (FP) PO PRN (21:15)
[2021-02-18] MEDS: THIAMINE HCL 100 MG TABLET (FP) PO SCH (21:15)
[2021-02-18] MEDS: QUEtiapine FUMARATE 100 MG TABLET (FP) PO SCH (21:16)
[2021-02-18] MEDS: MELATONIN 5 MG TABLETS PO SCH (21:16)
[2021-02-18] MEDS: COLLOIDAL OATMEAL 1 BAR EACH TP PRN (21:18)
[2021-02-19] MEDS: NICOTINE 14 MG/24 HOURS TOPICAL PATCH TD SCH (09:38)
[2021-02-19] MEDS: DIVALPROEX SODIUM 500 MG TABLET E.C. PO SCH ×2 (09:38→21:23)
[2021-02-19] MEDS: PRENATAL VITAMINS W/ FOLIC ACID TABLET (FP) PO SCH (09:38)
[2021-02-19] MEDS: P-EPHED 60MG/TRIPROLIDI 2.5MG TABLET PO PRN (17:37)
[2021-02-19] MEDS: MELATONIN 5 MG TABLETS PO SCH (21:23)
[2021-02-19] MEDS: QUEtiapine FUMARATE 100 MG TABLET (FP) PO SCH (21:23)
[2021-02-19] MEDS: THIAMINE HCL 100 MG TABLET (FP) PO SCH (21:23)
[2021-02-20] MEDS: PRENATAL VITAMINS W/ FOLIC ACID TABLET (FP) PO SCH (09:57)
[2021-02-20] MEDS: DIVALPROEX SODIUM 500 MG TABLET E.C. PO SCH ×2 (09:58→21:35)
[2021-02-20] MEDS: NICOTINE 14 MG/24 HOURS TOPICAL PATCH TD SCH (09:58)
[2021-02-20] MEDS ORDERED: PT OWN MED DRAWER 7, Y5N ONE (13:31)
[2021-02-20] MEDS: QUEtiapine FUMARATE 100 MG TABLET (FP) PO SCH (21:35)
[2021-02-20] MEDS: THIAMINE HCL 100 MG TABLET (FP) PO SCH (21:35)
[2021-02-20] MEDS: MELATONIN 5 MG TABLETS PO SCH (21:36)
[2021-02-21] MEDS: PRENATAL VITAMINS W/ FOLIC ACID TABLET (FP) PO SCH (09:51)
[2021-02-21] MEDS: DIVALPROEX SODIUM 500 MG TABLET E.C. PO SCH ×2 (09:51→21:30)
[2021-02-21] MEDS: NICOTINE 14 MG/24 HOURS TOPICAL PATCH TD SCH (09:52)
[2021-02-21] MEDS: P-EPHED 60MG/TRIPROLIDI 2.5MG TABLET PO PRN (21:29)
[2021-02-21] MEDS: QUEtiapine FUMARATE 100 MG TABLET (FP) PO SCH (21:30)
[2021-02-21] MEDS: THIAMINE HCL 100 MG TABLET (FP) PO SCH (21:30)
[2021-02-21] MEDS: MELATONIN 5 MG TABLETS PO SCH (21:30)
[2021-02-22] MEDS: MENTHOL/PHENOL 1 EACH UD MM PRN (03:32)
[2021-02-22] MEDS: ACETAMINOPHEN 325 MG TABLET (FP) PO PRN (06:15)
[2021-02-22] MEDS: P-EPHED 60MG/TRIPROLIDI 2.5MG TABLET PO PRN (06:16)
[2021-02-22] MEDS: MAG HYDROX/AL HYDROX/SIMETH 30 ML UNIT-DOSE CUP PO PRN (07:50)
[2021-02-22 09:11] VITALS: BP 113/59; PULSE 98; TEMP 97.5
[2021-02-22] MEDS: DIVALPROEX SODIUM 500 MG TABLET E.C. PO SCH (09:28)
[2021-02-22] MEDS: NICOTINE 14 MG/24 HOURS TOPICAL PATCH TD SCH (09:28)
[2021-02-22] MEDS: PRENATAL VITAMINS W/ FOLIC ACID TABLET (FP) PO SCH (09:28)
== END 2021-02-22 09:38 | disposition home or self-care (01) | DRG 772 ==
LOC: YASAS 11:13 → Y3E 11:15
PROVIDERS: ADMIT Allergy & Immunology; ATTEND Allergy & Immunology
PROC: HZ42ZZZ Group Counseling for Substance Abuse Treatment, Cognitive-Behavioral (ICD-10-PCS; principal; 2021-02-08)
DX: F10.20 Alcohol dependence, uncomplicated (principal); F14.20 Cocaine dependence, uncomplicated; F13.10 Sedative, hypnotic or anxiolytic abuse, uncomplicated; F12.10 Cannabis abuse, uncomplicated; F17.210 Nicotine dependence, cigarettes, uncomplicated; F31.62 Bipolar disorder, current episode mixed, moderate; G47.00 Insomnia, unspecified
CPT/HCPCS: 80164

== ENCOUNTER 2021-10-12 09:55 | Inpatient (IN) | payer OTHER ==
[2021-10-12] MEDS ORDERED: IBUPROFEN 400 MG TABLET (FP) PO PRN (10:23)
[2021-10-12] MEDS ORDERED: MAGNESIUM CITRATE 300 ML BOTTLE PO PRN (10:23)
[2021-10-12] MEDS ORDERED: METHOCARBAMOL 500 MG TABLET PO PRN (10:23)
[2021-10-12] MEDS ORDERED: BISMUTH SUBSALICYLATE 524 MG/30 ML PO PRN (10:23)
[2021-10-12] MEDS ORDERED: chlordiazePOXIDE HCL 25 MG CAPSULE PO PRN (10:23)
[2021-10-12] MEDS ORDERED: MAGNESIUM HYDROX 2400MG/30ML ORAL SUSPENSION 30 ML CUP PO PRN (10:23)
[2021-10-12] MEDS ORDERED: NICOTINE 10 MG CARTRIDGE (INHALER) IH PRN (10:23)
[2021-10-12] MEDS ORDERED: MENTHOL/PHENOL 1 EACH UD MM PRN (10:23)
[2021-10-12] MEDS ORDERED: ONDANSETRON *ODT* 4 MG TABLET SL PRN (10:23)
[2021-10-12] MEDS ORDERED: ACETAMINOPHEN 325 MG TABLET (FP) PO PRN (10:23)
[2021-10-12] MEDS ORDERED: LOPERAMIDE HCL 2 MG CAPSULE PO PRN (10:23)
[2021-10-12 10:36] VITALS: BMI 25.0
[2021-10-12] MEDS: chlordiazePOXIDE HCL 25 MG CAPSULE PO SCH ×3 (12:22→22:16)
[2021-10-12] MEDS: NICOTINE 14 MG/24 HOURS TOPICAL PATCH TD SCH (12:22)
[2021-10-12] MEDS: PRENATAL VITAMINS W/ FOLIC ACID TABLET (FP) PO SCH (12:24)
[2021-10-12] MEDS: hydrOXYzine PAMOATE 25 MG CAPSULE (FP) PO SCH ×3 (14:14→22:15)
[2021-10-12] MEDS: P-EPHED 60MG/TRIPROLIDI 2.5MG TABLET PO PRN (16:00)
[2021-10-12] MEDS ORDERED: COLLOIDAL OATMEAL 1 BAR EACH TP PRN (17:04)
[2021-10-12 17:13] LABS: CALCIUM 9.5 mg/dL (8.5-10.1)
[2021-10-12 17:14] LABS: ALBUMIN 4.1 g/dl (3.4-5.0)
[2021-10-12 17:18] LABS: CREATININE 1.2 mg/dL (0.55-1.3)
[2021-10-12 17:19] LABS: BILIRUBIN,TOTAL 0.6 mg/dL (0.2-1); HEMATOCRIT 41.3 % (35.4-49); HEMOGLOBIN 13.8 GM/dL (11.7-16.9); MCH 30.2 pg (25.7-33.7); MCHC 33.4 g/dl (32.0-35.9); MEAN CELL VOLUME 90.5 fl (80-96); MEAN PLT VOLUME 8.3 fl (7.5-11.1); PLATELET COUNT 224 10^3/uL (134-434); RBC 4.57 M/mm3 (4.00-5.60); RDW 14.2 % (11.9-15.9); TOT PROT 7.1 g/dl (6.4-8.2); WHITE BLOOD COUNT 8.7 K/mm3 (4.0-10.0)
[2021-10-12] MEDS: MAG HYDROX/AL HYDROX/SIMETH 30 ML UNIT-DOSE CUP PO PRN (18:47)
[2021-10-12] MEDS ORDERED: QUEtiapine FUMARATE 100 MG TABLET (FP) PO SCH (22:00)
[2021-10-12] MEDS: DIVALPROEX SODIUM 500 MG TABLET E.C. PO SCH (22:15)
[2021-10-12] MEDS: THIAMINE HCL 100 MG TABLET (FP) PO SCH (22:15)
[2021-10-12] MEDS: MELATONIN 5 MG TABLETS PO SCH (22:15)
[2021-10-13] MEDS: chlordiazePOXIDE HCL 25 MG CAPSULE PO SCH ×4 (05:37→22:29)
[2021-10-13] MEDS: hydrOXYzine PAMOATE 25 MG CAPSULE (FP) PO SCH ×5 (05:37→22:29)
[2021-10-13] MEDS: PRENATAL VITAMINS W/ FOLIC ACID TABLET (FP) PO SCH (10:13)
[2021-10-13] MEDS: DIVALPROEX SODIUM 500 MG TABLET E.C. PO SCH ×2 (10:13→22:29)
[2021-10-13] MEDS: P-EPHED 60MG/TRIPROLIDI 2.5MG TABLET PO PRN ×2 (10:15→18:19)
[2021-10-13] MEDS: NICOTINE 14 MG/24 HOURS TOPICAL PATCH TD SCH (10:16)
[2021-10-13] MEDS: MAG HYDROX/AL HYDROX/SIMETH 30 ML UNIT-DOSE CUP PO PRN (14:59)
[2021-10-13] MEDS: ACETAMINOPHEN 325 MG TABLET (FP) PO PRN (18:17)
[2021-10-13] MEDS: QUEtiapine FUMARATE 200 MG TABLET PO SCH (22:29)
[2021-10-13] MEDS: MELATONIN 5 MG TABLETS PO SCH (22:29)
[2021-10-13] MEDS: THIAMINE HCL 100 MG TABLET (FP) PO SCH (22:29)
[2021-10-14] MEDS: chlordiazePOXIDE HCL 25 MG CAPSULE PO SCH ×4 (06:11→22:20)
[2021-10-14] MEDS: hydrOXYzine PAMOATE 25 MG CAPSULE (FP) PO SCH ×5 (06:12→22:19)
[2021-10-14] MEDS: NICOTINE 14 MG/24 HOURS TOPICAL PATCH TD SCH (10:13)
[2021-10-14] MEDS: PRENATAL VITAMINS W/ FOLIC ACID TABLET (FP) PO SCH (10:13)
[2021-10-14] MEDS: DIVALPROEX SODIUM 500 MG TABLET E.C. PO SCH ×2 (10:13→22:19)
[2021-10-14] MEDS: P-EPHED 60MG/TRIPROLIDI 2.5MG TABLET PO PRN (10:14)
[2021-10-14] MEDS: ACETAMINOPHEN 325 MG TABLET (FP) PO PRN (14:42)
[2021-10-14] MEDS: QUEtiapine FUMARATE 200 MG TABLET PO SCH (22:19)
[2021-10-14] MEDS: THIAMINE HCL 100 MG TABLET (FP) PO SCH (22:19)
[2021-10-14] MEDS: MELATONIN 5 MG TABLETS PO SCH (22:19)
[2021-10-15] MEDS ORDERED: chlordiazePOXIDE HCL 10 MG CAPSULE PO PRN
[2021-10-15] MEDS: hydrOXYzine PAMOATE 25 MG CAPSULE (FP) PO SCH ×2 (06:15→10:34)
[2021-10-15] MEDS: chlordiazePOXIDE HCL 10 MG CAPSULE PO SCH ×4 (06:15→22:19)
[2021-10-15] MEDS: PRENATAL VITAMINS W/ FOLIC ACID TABLET (FP) PO SCH (10:13)
[2021-10-15] MEDS: DIVALPROEX SODIUM 500 MG TABLET E.C. PO SCH ×2 (10:13→22:20)
[2021-10-15] MEDS: NICOTINE 14 MG/24 HOURS TOPICAL PATCH TD SCH (10:14)
[2021-10-15] MEDS: hydrOXYzine PAMOATE 25 MG CAPSULE (FP) PO PRN ×2 (18:08→22:21)
[2021-10-15] MEDS: P-EPHED 60MG/TRIPROLIDI 2.5MG TABLET PO PRN (18:09)
[2021-10-15] MEDS: ACETAMINOPHEN 325 MG TABLET (FP) PO PRN (18:10)
[2021-10-15] MEDS: QUEtiapine FUMARATE 200 MG TABLET PO SCH (22:20)
[2021-10-15] MEDS: MELATONIN 5 MG TABLETS PO SCH (22:20)
[2021-10-15] MEDS: THIAMINE HCL 100 MG TABLET (FP) PO SCH (22:24)
[2021-10-16] MEDS ORDERED: chlordiazePOXIDE HCL 10 MG CAPSULE PO SCH (05:00)
[2021-10-16 08:58] VITALS: BP 106/62; PULSE 111; TEMP 97.1
[2021-10-16] MEDS: PRENATAL VITAMINS W/ FOLIC ACID TABLET (FP) PO SCH (10:27)
[2021-10-16] MEDS: DIVALPROEX SODIUM 500 MG TABLET E.C. PO SCH (10:27)
[2021-10-16] MEDS: NICOTINE 14 MG/24 HOURS TOPICAL PATCH TD SCH (10:28)
[2021-10-17] MEDS ORDERED: chlordiazePOXIDE HCL 10 MG CAPSULE PO ONE (05:00)
== END 2021-10-16 12:54 | disposition home or self-care (01) | DRG 774 ==
LOC: YASAS 09:55 → Y3N 11:09
PROVIDERS: ADMIT Allergy & Immunology; ATTEND Allergy & Immunology
PROC: HZ2ZZZZ Detoxification Services for Substance Abuse Treatment (ICD-10-PCS; principal; 2021-10-12)
DX: F10.230 Alcohol dependence with withdrawal, uncomplicated (principal); F14.20 Cocaine dependence, uncomplicated; F13.20 Sedative, hypnotic or anxiolytic dependence, uncomplicated; F12.20 Cannabis dependence, uncomplicated; F17.210 Nicotine dependence, cigarettes, uncomplicated; F31.9 Bipolar disorder, unspecified; F20.9 Schizophrenia, unspecified; U07.1 COVID-19; G47.00 Insomnia, unspecified; I10 Essential (primary) hypertension; K21.9 Gastro-esophageal reflux disease without esophagitis; R73.9 Hyperglycemia, unspecified
CPT/HCPCS: 36415; 80053; 80164; 85027; 86780; 87811; C9803; U0003; U0005

== ENCOUNTER 2022-01-09 11:41 | Inpatient (IN) | payer OTHER ==
[2022-01-09 11:59] VITALS: BMI 26.1
[2022-01-09] MEDS ORDERED: MAGNESIUM HYDROX 2400MG/30ML ORAL SUSPENSION 30 ML CUP PO PRN (13:48)
[2022-01-09] MEDS ORDERED: NICOTINE 10 MG CARTRIDGE (INHALER) IH PRN (13:48)
[2022-01-09] MEDS ORDERED: chlordiazePOXIDE HCL 25 MG CAPSULE PO PRN (13:48)
[2022-01-09] MEDS ORDERED: IBUPROFEN 600 MG TABLET (FP) PO PRN (13:48)
[2022-01-09] MEDS ORDERED: BENZOCAINE/MENTHOL (CHLORASEPTIC ) LOZENGE MM PRN (13:48)
[2022-01-09] MEDS ORDERED: BISMUTH SUBSALICYLATE 262 MG/15 ML BTL PO PRN (13:48)
[2022-01-09] MEDS ORDERED: ONDANSETRON *ODT* 4 MG TABLET SL PRN (13:48)
[2022-01-09] MEDS ORDERED: IBUPROFEN 400 MG TABLET (FP) PO PRN (13:48)
[2022-01-09] MEDS ORDERED: MAGNESIUM CITRATE 300 ML BOTTLE PO PRN (13:48)
[2022-01-09] MEDS ORDERED: DICYCLOMINE HCL 10 MG CAPSULE PO PRN (13:48)
[2022-01-09] MEDS ORDERED: LOPERAMIDE HCL 2 MG CAPSULE PO PRN (13:48)
[2022-01-09] MEDS ORDERED: ACETAMINOPHEN 325 MG TABLET (FP) PO PRN (13:48)
[2022-01-09] MEDS ORDERED: NALOXONE HCL (KLOXXADO) 8 MG SPRAY NS PRN (13:48)
[2022-01-09] MEDS: MAG HYDROX/AL HYDROX/SIMETH 30 ML UNIT-DOSE CUP PO PRN (17:21)
[2022-01-09] MEDS: PRENATAL VITAMINS W/ FOLIC ACID TABLET (FP) PO SCH (17:33)
[2022-01-09] MEDS: NICOTINE 21 MG/24 HOURS TOPICAL PATCH TD SCH (17:33)
[2022-01-09] MEDS: hydrOXYzine PAMOATE 25 MG CAPSULE (FP) PO SCH ×3 (17:33→22:10)
[2022-01-09] MEDS: chlordiazePOXIDE HCL 25 MG CAPSULE PO SCH ×2 (17:33→22:09)
[2022-01-09] MEDS: ACETAMINOPHEN 325 MG TABLET (FP) PO PRN (17:35)
[2022-01-09] MEDS ORDERED: COLLOIDAL OATMEAL 1 BAR EACH TP PRN ×2 (19:14)
[2022-01-09] MEDS ORDERED: QUEtiapine FUMARATE 300 MG TABLET PO ONE (22:00)
[2022-01-09] MEDS: MELATONIN 5 MG TABLETS PO SCH (22:10)
[2022-01-09] MEDS: THIAMINE HCL 100 MG TABLET (FP) PO SCH (22:10)
[2022-01-09] MEDS: DIVALPROEX SODIUM 500 MG TABLET E.C. PO SCH (22:10)
[2022-01-09] MEDS: P-EPHED 60MG/TRIPROLIDI 2.5MG TABLET PO PRN (22:10)
[2022-01-10] MEDS: chlordiazePOXIDE HCL 25 MG CAPSULE PO SCH ×4 (06:45→22:08)
[2022-01-10] MEDS: hydrOXYzine PAMOATE 25 MG CAPSULE (FP) PO SCH ×5 (06:45→22:08)
[2022-01-10] MEDS: P-EPHED 60MG/TRIPROLIDI 2.5MG TABLET PO PRN (06:45)
[2022-01-10] MEDS: ACETAMINOPHEN 325 MG TABLET (FP) PO PRN ×2 (06:48→16:50)
[2022-01-10] MEDS: NICOTINE 21 MG/24 HOURS TOPICAL PATCH TD SCH (10:05)
[2022-01-10] MEDS: PRENATAL VITAMINS W/ FOLIC ACID TABLET (FP) PO SCH (10:06)
[2022-01-10] MEDS: DIVALPROEX SODIUM 500 MG TABLET E.C. PO SCH ×2 (10:06→22:09)
[2022-01-10 10:52] LABS: HEMATOCRIT 39.6 % (35.4-49); HEMOGLOBIN 12.8 GM/dL (11.7-16.9); MCH 29.1 pg (25.7-33.7); MCHC 32.3 g/dl (32.0-35.9); MEAN CELL VOLUME 90.2 fl (80-96); MEAN PLT VOLUME 8.7 fl (7.5-11.1); PLATELET COUNT 216 10^3/uL (134-434); RBC 4.39 M/mm3 (4.00-5.60); RDW 13.4 % (11.9-15.9); WHITE BLOOD COUNT 5.3 K/mm3 (4.0-10.0)
[2022-01-10 11:00] LABS: ALBUMIN 3.7 g/dl (3.4-5.0); CALCIUM 9.2 mg/dL (8.5-10.1)
[2022-01-10 11:03] LABS: CREATININE 1.1 mg/dL (0.55-1.3)
[2022-01-10 11:04] LABS: TOT PROT 6.5 g/dl (6.4-8.2)
[2022-01-10 11:05] LABS: BILIRUBIN,TOTAL 0.2 mg/dL (0.2-1)
[2022-01-10] MEDS: METHOCARBAMOL 500 MG TABLET PO PRN (18:54)
[2022-01-10] MEDS: THIAMINE HCL 100 MG TABLET (FP) PO SCH (22:09)
[2022-01-10] MEDS: QUEtiapine FUMARATE 300 MG TABLET PO SCH (22:09)
[2022-01-10] MEDS: MELATONIN 5 MG TABLETS PO SCH (22:09)
[2022-01-10] MEDS: MAG HYDROX/AL HYDROX/SIMETH 30 ML UNIT-DOSE CUP PO PRN (22:09)
[2022-01-11] MEDS: hydrOXYzine PAMOATE 25 MG CAPSULE (FP) PO SCH ×5 (05:13→22:03)
[2022-01-11] MEDS: chlordiazePOXIDE HCL 25 MG CAPSULE PO SCH ×4 (05:14→22:03)
[2022-01-11] MEDS: P-EPHED 60MG/TRIPROLIDI 2.5MG TABLET PO PRN ×2 (06:28→22:03)
[2022-01-11] MEDS: DIVALPROEX SODIUM 500 MG TABLET E.C. PO SCH ×2 (10:08→22:03)
[2022-01-11] MEDS: PRENATAL VITAMINS W/ FOLIC ACID TABLET (FP) PO SCH (10:08)
[2022-01-11] MEDS: guaiFENesin 200 MG/10 ML 10 ML UNIT-DOSE CUPS PO PRN ×2 (10:09→16:34)
[2022-01-11] MEDS: NICOTINE 21 MG/24 HOURS TOPICAL PATCH TD SCH (10:10)
[2022-01-11] MEDS: QUEtiapine FUMARATE 300 MG TABLET PO SCH (22:03)
[2022-01-11] MEDS: MELATONIN 5 MG TABLETS PO SCH (22:04)
[2022-01-11] MEDS: THIAMINE HCL 100 MG TABLET (FP) PO SCH (22:04)
[2022-01-12] MEDS ORDERED: chlordiazePOXIDE HCL 10 MG CAPSULE PO PRN
[2022-01-12] MEDS: chlordiazePOXIDE HCL 10 MG CAPSULE PO SCH ×4 (05:49→22:11)
[2022-01-12] MEDS: hydrOXYzine PAMOATE 25 MG CAPSULE (FP) PO SCH ×5 (05:50→22:10)
[2022-01-12] MEDS: guaiFENesin 200 MG/10 ML 10 ML UNIT-DOSE CUPS PO PRN ×2 (05:51→17:36)
[2022-01-12] MEDS: PRENATAL VITAMINS W/ FOLIC ACID TABLET (FP) PO SCH (10:11)
[2022-01-12] MEDS: DIVALPROEX SODIUM 500 MG TABLET E.C. PO SCH ×2 (10:11→22:10)
[2022-01-12] MEDS: NICOTINE 21 MG/24 HOURS TOPICAL PATCH TD SCH (10:11)
[2022-01-12] MEDS: MELATONIN 5 MG TABLETS PO SCH (22:10)
[2022-01-12] MEDS: QUEtiapine FUMARATE 300 MG TABLET PO SCH (22:10)
[2022-01-12] MEDS: THIAMINE HCL 100 MG TABLET (FP) PO SCH (22:10)
[2022-01-12] MEDS: P-EPHED 60MG/TRIPROLIDI 2.5MG TABLET PO PRN (22:13)
[2022-01-13] MEDS: hydrOXYzine PAMOATE 25 MG CAPSULE (FP) PO SCH ×5 (05:14→22:07)
[2022-01-13] MEDS: chlordiazePOXIDE HCL 10 MG CAPSULE PO SCH ×2 (05:14→18:05)
[2022-01-13] MEDS: DIVALPROEX SODIUM 500 MG TABLET E.C. PO SCH ×2 (10:06→22:07)
[2022-01-13] MEDS: PRENATAL VITAMINS W/ FOLIC ACID TABLET (FP) PO SCH (10:06)
[2022-01-13] MEDS: NICOTINE 21 MG/24 HOURS TOPICAL PATCH TD SCH (10:07)
[2022-01-13] MEDS: P-EPHED 60MG/TRIPROLIDI 2.5MG TABLET PO PRN (18:58)
[2022-01-13] MEDS: guaiFENesin 200 MG/10 ML 10 ML UNIT-DOSE CUPS PO PRN (18:58)
[2022-01-13] MEDS: MELATONIN 5 MG TABLETS PO SCH (22:07)
[2022-01-13] MEDS: THIAMINE HCL 100 MG TABLET (FP) PO SCH (22:07)
[2022-01-13] MEDS: QUEtiapine FUMARATE 300 MG TABLET PO SCH (22:07)
[2022-01-14] MEDS ORDERED: chlordiazePOXIDE HCL 10 MG CAPSULE PO ONE (05:00)
[2022-01-14] MEDS: METHOCARBAMOL 500 MG TABLET PO PRN (05:53)
[2022-01-14] MEDS: hydrOXYzine PAMOATE 25 MG CAPSULE (FP) PO SCH ×2 (05:53→09:04)
[2022-01-14 09:03] VITALS: BP 107/62; PULSE 106; TEMP 97.7
[2022-01-14] MEDS: PRENATAL VITAMINS W/ FOLIC ACID TABLET (FP) PO SCH (09:03)
[2022-01-14] MEDS: DIVALPROEX SODIUM 500 MG TABLET E.C. PO SCH (09:03)
[2022-01-14] MEDS: NICOTINE 21 MG/24 HOURS TOPICAL PATCH TD SCH (09:04)
== END 2022-01-14 09:15 | disposition home or self-care (01) | DRG 774 ==
LOC: YASAS 11:41 → Y3N 15:38
PROVIDERS: ADMIT Allergy & Immunology; ATTEND Surgery
PROC: HZ2ZZZZ Detoxification Services for Substance Abuse Treatment (ICD-10-PCS; principal; 2022-01-09)
DX: F10.230 Alcohol dependence with withdrawal, uncomplicated (principal); F14.20 Cocaine dependence, uncomplicated; F12.10 Cannabis abuse, uncomplicated; F17.210 Nicotine dependence, cigarettes, uncomplicated; F20.9 Schizophrenia, unspecified; F31.9 Bipolar disorder, unspecified; F19.282 Other psychoactive substance dependence with psychoactive substance-induced sleep disorder; F19.24 Other psychoactive substance dependence with psychoactive substance-induced mood disorder; F41.1 Generalized anxiety disorder; G47.00 Insomnia, unspecified; I10 Essential (primary) hypertension; K21.9 Gastro-esophageal reflux disease without esophagitis; Z91.14 Patient's other noncompliance with medication regimen
CPT/HCPCS: 36415; 80053; 80164; 85027; 86780; 87811; C9803-CS; Q0162; U0003; U0005

== ENCOUNTER 2023-03-13 12:30 | Inpatient (IN) | payer OTHER ==
[2023-03-13 13:05] VITALS: BMI 23.6
[2023-03-13] MEDS ORDERED: ACETAMINOPHEN 325 MG TABLET (FP) PO PRN (16:27)
[2023-03-13] MEDS ORDERED: LOPERAMIDE HCL 2 MG CAPSULE PO PRN (16:27)
[2023-03-13] MEDS ORDERED: NALOXONE HCL 0.4 MG/ML VIAL IM PRN (16:27)
[2023-03-13] MEDS ORDERED: chlordiazePOXIDE HCL 25 MG CAPSULE PO PRN (16:27)
[2023-03-13] MEDS ORDERED: NALOXONE HCL (KLOXXADO) 8 MG SPRAY NS PRN (16:27)
[2023-03-13] MEDS ORDERED: IBUPROFEN 400 MG TABLET (FP) PO PRN (16:27)
[2023-03-13] MEDS ORDERED: hydrOXYzine PAMOATE 25 MG CAPSULE (FP) PO PRN (16:27)
[2023-03-13] MEDS ORDERED: MAGNESIUM HYDROX 2400MG/30ML ORAL SUSPENSION 30 ML CUP PO PRN (16:27)
[2023-03-13] MEDS ORDERED: guaiFENesin 600 MG TABLET.ER (FP) PO PRN (16:27)
[2023-03-13] MEDS ORDERED: ONDANSETRON *ODT* 4 MG TABLET SL PRN (16:27)
[2023-03-13] MEDS ORDERED: IBUPROFEN 600 MG TABLET (FP) PO PRN (16:27)
[2023-03-13] MEDS ORDERED: BENZOCAINE/MENTHOL (CHLORASEPTIC ) LOZENGE MM PRN (16:27)
[2023-03-13] MEDS ORDERED: BISMUTH SUBSALICYLATE 524 MG/30 ML PO PRN (16:27)
[2023-03-13] MEDS ORDERED: POLYETHYLENE GLYCOL (HEALTHYLAX) 3350 17 GM PACKET PO PRN (16:27)
[2023-03-13] MEDS ORDERED: BENZONATATE 200 MG CAPSULE PO PRN (16:27)
[2023-03-13] MEDS ORDERED: DICYCLOMINE HCL 10 MG CAPSULE PO PRN (16:27)
[2023-03-13] MEDS ORDERED: chlordiazePOXIDE HCL 25 MG CAPSULE ONE (17:33)
[2023-03-13] MEDS: chlordiazePOXIDE HCL 25 MG CAPSULE PO SCH ×2 (17:35→22:25)
[2023-03-13] MEDS ORDERED: MELATONIN 5 MG TABLETS PO SCH (22:00)
[2023-03-13] MEDS: THIAMINE HCL 100 MG TABLET (FP) PO SCH (22:25)
[2023-03-14] MEDS: chlordiazePOXIDE HCL 25 MG CAPSULE PO SCH ×4 (05:28→22:02)
[2023-03-14] MEDS: DIVALPROEX SODIUM 500 MG TABLET E.C. PO SCH ×2 (10:27→22:02)
[2023-03-14] MEDS: METHOCARBAMOL 500 MG TABLET PO PRN (10:27)
[2023-03-14] MEDS: PRENATAL VITAMINS W/ FOLIC ACID TABLET (FP) PO SCH (10:27)
[2023-03-14 13:44] LABS: HEMATOCRIT 39.4 % (35.4-49); HEMOGLOBIN 12.7 GM/dL (11.7-16.9); MCH 28.9 pg (25.7-33.7); MCHC 32.2 g/dl (32.0-35.9); MEAN CELL VOLUME 89.6 fl (80-96); MEAN PLT VOLUME 9.1 fl (7.5-11.1); PLATELET COUNT 238 10^3/uL (134-434); WHITE BLOOD COUNT 7.5 K/mm3 (4.0-10.0)
[2023-03-14 13:58] LABS: CALCIUM 9.1 mg/dL (8.5-10.1)
[2023-03-14 13:59] LABS: ALBUMIN 3.5 g/dl (3.4-5.0); BLOOD UREA NITROGEN 16.3 mg/dL (7-18)
[2023-03-14 14:02] LABS: CREATININE 1.1 mg/dL (0.55-1.3)
[2023-03-14] MEDS ORDERED: COLLOIDAL OATMEAL 1 BAR EACH TP PRN (14:02)
[2023-03-14 14:03] LABS: BILIRUBIN,TOTAL 0.2 mg/dL (0.2-1); TOT PROT 6.9 g/dl (6.4-8.2)
[2023-03-14] MEDS: MAG HYDROX/AL HYDROX/SIMETH 30 ML UNIT-DOSE CUP PO PRN (18:02)
[2023-03-14] MEDS: QUEtiapine FUMARATE 200 MG TABLET PO SCH (22:02)
[2023-03-14] MEDS: THIAMINE HCL 100 MG TABLET (FP) PO SCH (22:02)
[2023-03-15] MEDS: chlordiazePOXIDE HCL 25 MG CAPSULE PO SCH ×4 (05:18→22:40)
[2023-03-15] MEDS: DIVALPROEX SODIUM 500 MG TABLET E.C. PO SCH ×2 (11:05→22:40)
[2023-03-15] MEDS: PRENATAL VITAMINS W/ FOLIC ACID TABLET (FP) PO SCH (11:06)
[2023-03-15] MEDS: MAG HYDROX/AL HYDROX/SIMETH 30 ML UNIT-DOSE CUP PO PRN ×2 (14:06→20:44)
[2023-03-15] MEDS: THIAMINE HCL 100 MG TABLET (FP) PO SCH (22:40)
[2023-03-15] MEDS: QUEtiapine FUMARATE 200 MG TABLET PO SCH (22:40)
[2023-03-16] MEDS ORDERED: chlordiazePOXIDE HCL 10 MG CAPSULE PO PRN
[2023-03-16] MEDS: chlordiazePOXIDE HCL 10 MG CAPSULE PO SCH ×4 (05:55→22:47)
[2023-03-16] MEDS: PRENATAL VITAMINS W/ FOLIC ACID TABLET (FP) PO SCH (10:24)
[2023-03-16] MEDS: DIVALPROEX SODIUM 500 MG TABLET E.C. PO SCH ×2 (10:24→22:47)
[2023-03-16] MEDS: METHOCARBAMOL 500 MG TABLET PO PRN (10:24)
[2023-03-16] MEDS: QUEtiapine FUMARATE 200 MG TABLET PO SCH (22:47)
[2023-03-16] MEDS: THIAMINE HCL 100 MG TABLET (FP) PO SCH (22:47)
[2023-03-17] MEDS: chlordiazePOXIDE HCL 10 MG CAPSULE PO SCH ×2 (05:55→17:33)
[2023-03-17] MEDS: DIVALPROEX SODIUM 500 MG TABLET E.C. PO SCH ×2 (10:20→22:04)
[2023-03-17] MEDS: PRENATAL VITAMINS W/ FOLIC ACID TABLET (FP) PO SCH (10:21)
[2023-03-17] MEDS: THIAMINE HCL 100 MG TABLET (FP) PO SCH (22:03)
[2023-03-17] MEDS: QUEtiapine FUMARATE 200 MG TABLET PO SCH (22:03)
[2023-03-18] MEDS ORDERED: chlordiazePOXIDE HCL 10 MG CAPSULE PO ONE (05:00)
[2023-03-18] MEDS: PRENATAL VITAMINS W/ FOLIC ACID TABLET (FP) PO SCH (09:19)
[2023-03-18] MEDS: DIVALPROEX SODIUM 500 MG TABLET E.C. PO SCH (09:19)
[2023-03-18 09:31] VITALS: RESP 18
[2023-03-18 12:50] VITALS: BP 140/79; PULSE 82; TEMP 97.5
== END 2023-03-18 14:01 | disposition other institution (70) | DRG 774 ==
LOC: YASAS 12:30 → Y6N 17:02
PROVIDERS: ADMIT Allergy & Immunology; ATTEND Allergy & Immunology
PROC: HZ2ZZZZ Detoxification Services for Substance Abuse Treatment (ICD-10-PCS; principal; 2023-03-13)
DX: F10.230 Alcohol dependence with withdrawal, uncomplicated (principal); F14.20 Cocaine dependence, uncomplicated; F17.210 Nicotine dependence, cigarettes, uncomplicated; F25.0 Schizoaffective disorder, bipolar type; F19.280 Other psychoactive substance dependence with psychoactive substance-induced anxiety disorder; G47.00 Insomnia, unspecified; H93.13 Tinnitus, bilateral; M54.50 Low back pain, unspecified; G89.29 Other chronic pain
CPT/HCPCS: 36415; 80053; 85027; 86780; 87635; 87811; 93005; 93010

== ENCOUNTER 2024-02-20 11:58 | Inpatient (IN) | payer OTHER ==
[2024-02-20 12:50] VITALS: BMI 22.6
[2024-02-20] MEDS ORDERED: MAGNESIUM HYDROX 2400MG/30ML ORAL SUSPENSION 30 ML CUP PO PRN (14:09)
[2024-02-20] MEDS ORDERED: hydrOXYzine PAMOATE 25 MG CAPSULE (FP) PO PRN (14:09)
[2024-02-20] MEDS ORDERED: IBUPROFEN 400 MG TABLET (FP) PO PRN (14:09)
[2024-02-20] MEDS ORDERED: POLYETHYLENE GLYCOL (HEALTHYLAX) 3350 17 GM PACKET PO PRN (14:09)
[2024-02-20] MEDS ORDERED: NALOXONE (NARCAN) HCL 4 MG/0.1 ML SPRAY NS PRN (14:09)
[2024-02-20] MEDS ORDERED: NALOXONE HCL 0.4 MG/ML VIAL IM PRN (14:09)
[2024-02-20] MEDS ORDERED: guaiFENesin 600 MG TABLET.ER (FP) PO PRN (14:09)
[2024-02-20] MEDS ORDERED: LOPERAMIDE HCL 2 MG CAPSULE PO PRN (14:09)
[2024-02-20] MEDS ORDERED: BENZONATATE 200 MG CAPSULE PO PRN (14:09)
[2024-02-20] MEDS ORDERED: BENZOCAINE/MENTHOL (CHLORASEPTIC ) LOZENGE MM PRN (14:09)
[2024-02-20] MEDS: ACETAMINOPHEN 325 MG TABLET (FP) PO PRN (16:36)
[2024-02-20] MEDS: TUBERCULIN PPD 5 TU/0.1ML VIAL ID ONE (17:48)
[2024-02-20] MEDS: THIAMINE 100 MG TABLET PO SCH (21:32)
[2024-02-20] MEDS: MELATONIN 5 MG TABLETS PO SCH (21:33)
[2024-02-21] MEDS: IBUPROFEN 600 MG TABLET (FP) PO PRN (08:42)
[2024-02-21] MEDS: PRENATAL VITAMINS W/ FOLIC ACID TABLET (FP) PO SCH (10:30)
[2024-02-21 12:08] LABS: HEMATOCRIT 39.1 % (35.4-49); HEMOGLOBIN 12.7 GM/dL (11.7-16.9); MCH 28.9 pg (25.7-33.7); MCHC 32.5 g/dl (32.0-35.9); MEAN CELL VOLUME 88.9 fl (80-96); MEAN PLT VOLUME 10.4 fl (7.5-11.1); PLATELET COUNT 172 10^3/uL (134-434); RBC 4.39 M/mm3 (4.00-5.60); RDW 13.5 % (11.9-15.9); WHITE BLOOD COUNT 6.8 K/mm3 (4.0-10.0)
[2024-02-21 12:13] LABS: POTASSIUM 4.2 mmol/L (3.5-5.1)
[2024-02-21 12:15] LABS: ALBUMIN 3.6 g/dl (3.4-5.0); BLOOD UREA NITROGEN 18.6 mg/dL (7-18); CALCIUM 9.4 mg/dL (8.5-10.1)
[2024-02-21 12:18] LABS: CREATININE 1.2 mg/dL (0.55-1.3)
[2024-02-21 12:20] LABS: BILIRUBIN,TOTAL 0.1 mg/dL (0.2-1); TOT PROT 6.8 g/dl (6.4-8.2)
[2024-02-21] MEDS: DIVALPROEX SODIUM 500 MG TABLET E.C. PO SCH (21:08)
[2024-02-21] MEDS: QUEtiapine FUMARATE 100 MG TABLET (FP) PO SCH (21:08)
[2024-02-21 23:35] LABS: URINE APPEARANCE CLEAR; URINE BILIRUBIN NEGATIVE (NEGATIVE); URINE COLOR YELLOW; URINE GLUCOSE (UA) NEGATIVE (NEGATIVE); URINE KETONE NEGATIVE (NEGATIVE); URINE LEUK ESTERASE NEGATIVE (NEGATIVE); URINE NITRITE NEGATIVE (NEGATIVE); URINE PROTEIN NEGATIVE (NEGATIVE); URINE UROBILINOGEN 0.2 mg/dL (0.2-1.0)
[2024-02-22] MEDS: QUEtiapine FUMARATE 100 MG TABLET (FP) PO SCH (22:02)
[2024-02-23] MEDS ORDERED: QUEtiapine FUMARATE 50 MG TABLET ONE (20:17)
[2024-02-26] MEDS: MAG HYDROX/AL HYDROX/SIMETH 30 ML UNIT-DOSE CUP PO PRN (17:43)
[2024-03-02 06:38] VITALS: RESP 18; TEMP 97.8
[2024-03-02 09:29] VITALS: BP 104/69; PULSE 96
== END 2024-03-02 09:06 | disposition home or self-care (01) | DRG 772 ==
LOC: YASAS 11:58 → Y3NR 15:07 → Y3W 02-23 11:04
PROVIDERS: ADMIT Allergy & Immunology; ATTEND Psychiatry & Neurology Pain Medicine
PROC: HZ42ZZZ Group Counseling for Substance Abuse Treatment, Cognitive-Behavioral (ICD-10-PCS; principal; 2024-02-20)
DX: F10.20 Alcohol dependence, uncomplicated (principal); F12.10 Cannabis abuse, uncomplicated; F19.282 Other psychoactive substance dependence with psychoactive substance-induced sleep disorder; F19.280 Other psychoactive substance dependence with psychoactive substance-induced anxiety disorder; F31.9 Bipolar disorder, unspecified; F25.9 Schizoaffective disorder, unspecified; F43.10 Post-traumatic stress disorder, unspecified; E78.5 Hyperlipidemia, unspecified; I10 Essential (primary) hypertension; K21.9 Gastro-esophageal reflux disease without esophagitis; Z86.69 Personal history of other diseases of the nervous system and sense organs; Z87.891 Personal history of nicotine dependence
CPT/HCPCS: 36415; 80053; 80164; 80305; 80307; 81003; 85027; 86780; 87811; 93005; 93010

== ENCOUNTER 2024-10-05 11:41 | Inpatient (IN) | payer OTHER ==
[2024-10-05 12:04] VITALS: BMI 20.7
[2024-10-05] MEDS ORDERED: MAGNESIUM HYDROX 2400MG/30ML ORAL SUSPENSION 30 ML CUP PO PRN (12:17)
[2024-10-05] MEDS ORDERED: METHOCARBAMOL 500 MG TABLET PO PRN (12:17)
[2024-10-05] MEDS ORDERED: BENZOCAINE/MENTHOL (CHLORASEPTIC ) LOZENGE MM PRN (12:17)
[2024-10-05] MEDS ORDERED: IBUPROFEN 400 MG TABLET (FP) PO PRN (12:17)
[2024-10-05] MEDS ORDERED: BISMUTH SUBSALICYLATE 262 MG/15 ML BTL PO PRN (12:17)
[2024-10-05] MEDS ORDERED: ACETAMINOPHEN 325 MG TABLET (FP) PO PRN (12:17)
[2024-10-05] MEDS ORDERED: BENZONATATE 200 MG CAPSULE PO PRN (12:17)
[2024-10-05] MEDS ORDERED: DICYCLOMINE HCL 10 MG CAPSULE PO PRN (12:17)
[2024-10-05] MEDS ORDERED: MAG HYDROX/AL HYDROX/SIMETH 30 ML UNIT-DOSE CUP PO PRN (12:17)
[2024-10-05] MEDS ORDERED: NALOXONE (NARCAN) HCL 4 MG/0.1 ML SPRAY NS PRN (12:17)
[2024-10-05] MEDS ORDERED: POLYETHYLENE GLYCOL (HEALTHYLAX) 3350 17 GM PACKET PO PRN (12:17)
[2024-10-05] MEDS ORDERED: NICOTINE POLACRILEX 2 MG GUM BUC PRN (12:17)
[2024-10-05] MEDS ORDERED: IBUPROFEN 600 MG TABLET (FP) PO PRN (12:17)
[2024-10-05] MEDS ORDERED: LOPERAMIDE HCL 2 MG CAPSULE PO PRN (12:17)
[2024-10-05] MEDS ORDERED: ONDANSETRON *ODT* 4 MG TABLET SL PRN (12:17)
[2024-10-05] MEDS ORDERED: guaiFENesin 600 MG TABLET.ER (FP) PO PRN (12:17)
[2024-10-05] MEDS: PETROLATUM, WHITE 30 GM TUBE TP SCH (15:00)
[2024-10-05] MEDS: hydrOXYzine PAMOATE 25 MG CAPSULE (FP) PO PRN (17:15)
[2024-10-05] MEDS: THIAMINE 100 MG TABLET PO SCH (22:02)
[2024-10-05] MEDS: MELATONIN 5 MG TABLETS PO SCH (22:02)
[2024-10-06 09:23] LABS: HEMATOCRIT 40.6 % (35.4-49); HEMOGLOBIN 13.4 GM/dL (11.7-16.9); MCH 28.4 pg (25.7-33.7); MEAN CELL VOLUME 85.8 fl (80-96); MEAN PLT VOLUME 9.7 fl (7.5-11.1); PLATELET COUNT 225 10^3/uL (134-434); RBC 4.73 M/mm3 (4.00-5.60); RDW 13.8 % (11.9-15.9); WHITE BLOOD COUNT 6.5 K/mm3 (4.0-10.0)
[2024-10-06 09:43] LABS: POTASSIUM 3.8 mmol/L (3.5-5.1)
[2024-10-06 09:45] LABS: BLOOD UREA NITROGEN 17.7 mg/dL (7-18); CALCIUM 9.3 mg/dL (8.5-10.1)
[2024-10-06 09:49] LABS: CREATININE 1.2 mg/dL (0.55-1.3)
[2024-10-06 09:50] LABS: BILIRUBIN,TOTAL 0.3 mg/dL (0.2-1); TOT PROT 7.2 g/dl (6.4-8.2)
[2024-10-06] MEDS: NICOTINE 14 MG/24 HOURS TOPICAL PATCH TD SCH (10:20)
[2024-10-06] MEDS: PRENATAL VITAMINS W/ FOLIC ACID TABLET (FP) PO SCH (10:22)
[2024-10-06] MEDS: PANTOPRAZOLE 20 MG TABLET PO SCH (12:48)
[2024-10-06] MEDS: PATIENT'S OWN MEDICATION (NON-FORMULARY) (Omeprazole 20 MG Capsule.Dr) PO SCH (13:19)
[2024-10-06 21:44] VITALS: RESP 16
[2024-10-07] MEDS: QUEtiapine FUMARATE 100 MG TABLET (FP) PO SCH (00:16)
[2024-10-07 09:03] VITALS: BP 102/83; PULSE 75; TEMP 97.7
== END 2024-10-07 09:50 | disposition other institution (70) | DRG 774 ==
LOC: YASAS 11:41 → Y6N 14:15
PROVIDERS: ADMIT Allergy & Immunology; ATTEND Allergy & Immunology
PROC: HZ2ZZZZ Detoxification Services for Substance Abuse Treatment (ICD-10-PCS; principal; 2024-10-05)
DX: F10.20 Alcohol dependence, uncomplicated (principal); F14.20 Cocaine dependence, uncomplicated; F12.20 Cannabis dependence, uncomplicated; F17.210 Nicotine dependence, cigarettes, uncomplicated; F19.280 Other psychoactive substance dependence with psychoactive substance-induced anxiety disorder; F19.282 Other psychoactive substance dependence with psychoactive substance-induced sleep disorder; F20.9 Schizophrenia, unspecified; F31.9 Bipolar disorder, unspecified; F43.10 Post-traumatic stress disorder, unspecified; I15.8 Other secondary hypertension; K21.9 Gastro-esophageal reflux disease without esophagitis; M54.50 Low back pain, unspecified; H93.13 Tinnitus, bilateral
CPT/HCPCS: 36415; 80053; 80305; 80307; 85027; 86780; 93005; 93010